=== PATIENT | female | born 1935 | race Caucasian/White ===

== ENCOUNTER 2016-11-04 01:16 | Inpatient (IN) | payer MEDICARE, MEDICAID ==
[~2016-11-04] VITALS: Ht 152.4 cm; Wt 83.1 kg
[2016-11-04] VITALS (19 sets, daily range): BP systolic 86–130; BP diastolic 61–92
[~2016-11-04 01:16] MED LIST: ACET-2422 PO; ACET325T38 PO; ASP81TEC PO; BISA10SU58 RC; CARV3.12 PO; CARV3.122 PO; CEFD300C3 PO; CETI10CA PO; CHOL100048 PO; CLOP75TA28 PO; CLOP75TA69 PO; DEXAMETHASONE PF 10 MG/ML (DECADRON) VIAL ONE; DONE10TA12 PO; DONE10TA41 PO; FAMO10TA43 PO; FIBER CHOICE PO; FURO-125 PO; FURO20TA4 PO; GLIP10TA13 PO; GLYB5TAB6; INSU100V3 SC; INSU100V5 SQ; INUL1.5T3 PO; LACT1CAP64 PO; LEVA1.2516 INH; LIDO76.5 TP; LOPE2CAP PO; MAGN400O7 PO; METF500T4; METO50TA2; NYST15CR TP; PANT40SU PO; PANT40TA3 PO; POTA10TA10 PO; POTA20TA15 PO; PRD20T PO; SIMV40TA PO; SIMV40TA4 PO; SULF1TAB38 PO; VITA1CAP PO; glyberide; lasix; metformin; metoprolol
--- NOTE | 2016-11-04 01:25 | ED Respiratory ---
General Chief Complaint: Respiratory Problems Stated Complaint: SOA Source: patient (LIMITED HISTORIAN), old records History of Present Illness Time seen by provider: 01:14 Initial Comments PT ARRIVES VIA EMS FROM [facility]IA [facility] PT HAS BEEN SHORT OF BREATH FOR APPROXIMATELY AN HOUR PT DENIES CHEST PAIN PT HAS SWELLING TO LEGS/ FEET DENIES COUGH PT'S O2 SAT WAS 89% ON 3L/NC SKILLED NURSING GAVE NEB TREATMENT AT 0025 AND EMS GAVE ANOTHER ONE PT HAS HISTORY OF CHF/PULMONARY EDEMA WAS ADMITTED 09/28-10/05 FOR SAME PT IS DNR/DNI PCP: DR. THORPE Allergies and Home Medications Allergies Coded Allergies: No Known Drug Allergies (Unverified , 09/28/16) Home Medications 10 ML PO DAILY (Reported) Acetaminophen 650 Mg Tablet.er 650 MG PO Q6H PRN PRN PAIN (Reported) Aspirin 81 Mg Tabec 81 MG PO DAILY (Reported) Bisacodyl 10 Mg Supp.rect 10 MG RC DAILY PRN PRN CONSTIPATION (Reported) Carvedilol 3.125 Mg Tablet 3.125 MG PO BID (Reported) Cetirizine HCl 10 Mg Capsule 10 MG PO DAILY (Reported) Cholecalciferol (Vitamin D3) 1,000 Unit Capsule 1,000 UNIT PO DAILY (Reported) Clopidogrel Bisulfate 75 Mg Tablet 75 MG PO DAILY (Reported) Donepezil HCl 10 Mg Tablet 10 MG PO HS (Reported) Famotidine 10 Mg Tablet 10 MG PO AC PRN PRN HEARTBURN (Reported) Furosemide 20 Mg Tablet 60 MG PO BID (Reported) TAKES 3 (20 MG) TABLETS Insulin Determir 1,000 Units/10 Ml Soln #3 15 UNIT SQ HS Prescribed by: ELKIN THORPE on 10/05/16 0832 Insulin Regular, Human 1,000 Units/10 Ml Soln #1 0 UNIT SC ACHS U = UNITS FOR: FSBS 151-200 GIVE 4 U, 201-250 GIVE 6 U, 251-300 GIVE 8 U, 301 -350 GIVE 10 U, 351-400 GIVE 12 U, >400 CALL DOCTOR Prescribed by: ELKIN THORPE on 10/05/16 0832 Lactobacillus Combo No.11 1 Each Cap.sprink 10Days 1 EACH PO DAILY (Reported) STARTED 09/24/16 FOR A 10 DAY THERAPY Levalbuterol HCl 1.25 Mg/3 Ml Vial.neb #90 1.25 MG INH RTQ2H PRN PRN SHORTNESS OF BREATH Prescribed by: ELKIN THORPE on 10/05/1632 Levalbuterol HCl 1.25 Mg/3 Ml Vial.neb #60 1.25 MG INH BID Prescribed by: ELKIN THORPE on 10/05/1632 Lidocaine HCl 76.5 Gm Cream..g. TP QID PRN PRN PAIN (Reported) Loperamide HCl 2 Mg Capsule 2 MG PO Q4H PRN PRN DIARRHEA (Reported) Magnesium Hydroxide 400 Mg/5 Ml Oral.susp 30 ML PO DAILY PRN PRN CONSTIPATION ( Reported) Nystatin 15 Gm Cream..g. TP BID (Reported) Pantoprazole Sodium 40 Mg Tablet.dr 40 MG PO DAILY (Reported) Potassium Chloride 10 Meq Tablet.er 20 MEQ PO BID (Reported) TAKES 2 (20 MEQ) TABLETS Simvastatin 40 Mg Tablet 40 MG PO HS (Reported) Vitamin B Complex 1 Each Capsule 1 CAP PO DAILY (Reported) Constitutional: no symptoms reported other (VERY LIMITED) Respiratory: see HPI short of breath Cardiovascular: No chest pain, edema Past Tmvjbih-Mftmlr-Sqhvok Hx Patient Social History Recent Hopitalizations: No Seasonal Allergies Seasonal Allergies: No Surgeries HX Surgeries: Yes Surgeries: Appendectomy, Cardiac, CABG, Gallbladder, Hysterectomy, Orthopedic Respiratory Hx Respiratory Disorders: Yes (PULMONARY EDEMA; CHRONIC RESPIRATORY FAILURE AND HYPOXIA-O2 DEPENDENT) Respiratory Disorders: Pneumonia Cardiovascular Hx Cardiac Disorders: Yes (congestive heart failure; PULMONARY EDEMA) Cardiac Disorders: Coronary Artery Disease, Heart Attack, Hypertension Neurological Hx Neurological Disorders: Yes (LEFT SIDE WEAKNESS) Neurological Disorders: Dementia, Stroke, TIA Reproductive System 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 Genitourinary Hx Genitourinary Disorders: Yes Genitourinary Disorders: Renal Failure, UTI-Chronic Gastrointestinal Gastrointestinal Disorders: Abdominal Hernia, Gastroesophageal Reflux, Obstructive Bowel, Chronic Diarrhea Musculoskeletal Hx Musculoskeletal Disorders: Yes (muscle weakness, hemiplegia l side; GAIT DISTURBANCE; FALLS) Endocrine Hx Endocrine Disorders: Yes Endocrine Disorders: Diabetes, Insulin dep, Hypothyroidsim HEENT HX ENT Disorders: Yes HEENT Disorders: Cataract Cancer Hx Cancer: No Psychosocial Hx Psychiatric Problems: No Integumentary HX Skin/Integumentary Disorder: No Blood Transfusions Hx Blood Disorders: No Family Medical History Family Medial History: Completed stroke 19 MOTHER G8 BROTHER Hypertension 19 FATHER 19 MOTHER G8 BROTHER G8 SISTER Myocardial infarction 19 FATHER Physical Exam Vital Signs Vital Sign - Last 12Hours 11/04/16 01:20 Temp 95.0 Pulse 102 Resp 20 B/P 145/82 Pulse Ox 92 O2 Delivery Nasal Cannula O2 Flow Rate 3 Capillary Refill : General Appearance: moderate distress (WITH AUDIBLE WHEEZING FROM THE DESK) Respiratory: respiratory distress accessory muscle use wheezing (AUDIBLE WHEEZING FROM DESK) Cardiovascular: no JVD irregularly irregular Gastrointestinal: non tender soft Extremities: pedal edema (2+ EDEMA BILATERALLY) Neurologic/Psychiatric: no motor/sensory deficits alert Skin: normal color other (COOL, DRY) Progress/Results/Core Measures Results/Orders Lab Results Laboratory Tests Test 11/04/16 01:24 Range/Units Activated Partial Thromboplast Time 31 24-35 SEC Alanine Aminotransferase (ALT/SGPT) 15 0-55 U/L Albumin 3.5 3.2-4.5 G/DL Alkaline Phosphatase 87 40-136 U/L Anion Gap 15 H 5-14 MMOL/L Aspartate Amino Transf (AST/SGOT) 27 5-34 U/L B-Type Natriuretic Peptide 1318.2 H <100.0 PG/ML BUN/Creatinine Ratio 30 Basophils # (Auto) 0.0 0.0-0.1 10^3/uL Basophils (%) (Auto) 0 0-10 % Blood Urea Nitrogen 62 H 7-18 MG/DL Calcium Level 9.2 8.5-10.1 MG/DL Carbon Dioxide Level 30 21-32 MMOL/L Chloride Level 95 L 98-107 MMOL/L Creatine Kinase MB 2.1 <6.6 NG/ML Creatinine 2.08 H 0.60-1.30 MG/DL Eosinophils # (Auto) 0.2 0.0-0.3 10^3/uL Eosinophils (%) (Auto) 2 0-10 % Estimat Glomerular Filtration Rate 23 Glucose Level 72 70-105 MG/DL Hematocrit 33 L 35-52 % Hemoglobin 10.4 L 11.5-16.0 G/DL INR Comment 1.1 0.8-1.4 Lymphocytes # (Auto) 2.1 1.0-4.0 X 10^3 Lymphocytes (%) (Auto) 20 12-44 % Magnesium Level 2.4 1.8-2.4 MG/DL Mean Corpuscular Hemoglobin 30 25-34 PG Mean Corpuscular Hemoglobin Concent 32 32-36 G/DL Mean Corpuscular Volume 92 80-99 FL Mean Platelet Volume 10.4 7.4-10.4 FL Monocytes # (Auto) 0.7 0.0-1.0 X 10^3 Monocytes (%) (Auto) 6 0-12 % Neutrophils # (Auto) 7.4 1.8-7.8 X 10^3 Neutrophils (%) (Auto) 71 42-75 % Platelet Count 248 130-400 10^3/uL Potassium Level 4.1 3.6-5.0 MMOL/L Prothrombin Time 14.2 12.2-14.7 SEC Red Blood Count 3.52 L 4.35-5.85 10^6/uL Red Cell Distribution Width 15.1 H 10.0-14.5 % Sodium Level 140 135-145 MMOL/L Total Bilirubin 1.3 H 0.1-1.0 MG/DL Total Creatine Kinase 26 L 29-168 U/L Total Protein 6.8 6.4-8.2 G/DL Troponin I < 0.30 <0.30 NG/ML White Blood Count 10.4 4.3-11.0 10^3/uL Micro Results Microbiology 11/04/16 Influenza Types A,B Antigen (EMILIA) - Final, Complete My Orders Orders-JUHI VILLALOBOS DO Saline Lock/Iv-Start (11/04/16:18) Ekg Tracing (11/04/16:18) O2 (11/04/16:18) Monitor-Rhythm Ecg Trace Only (11/04/16:18) BNP (11/04/16:18) Cbc With Automated Diff (11/04/16:18) Comprehensive Metabolic Panel (11/04/16:18) Creatine Kinase (11/04/16:18) Creatine Kinase Mb (11/04/16:18) Magnesium (11/04/16:18) Protime With Inr (11/04/16:18) Partial Thromboplastin Time (11/04/16:18) Troponin I (11/04/16:18) Influenza A And B Antigens (11/04/16 01:18) Chest 1 View, Ap/Pa Only (11/04/16 01:18) Albuterol/Ipra Inhalation Soln (Duoneb I (11/04/16 01:30) Dexamethasone Injection (Decadron Inject (11/04/16 01:30) Rt Request For Service (11/04/16 01:18) Svn Sm Volume Nebulizer Rt-Rfs (11/04/16 01:18) Methylprednisolone Sod Succ (Solu-Medrol (11/04/16 01:30) Dexamethasone Pf Injection (Decadron Pf (11/04/16 01:16) Furosemide Injection (Lasix Injection) (11/04/16 01:30) Catheter(Urinary) Insert & Ass 03,15 (11/04/16 01:26) Medications Given in ED Current Medications Medications Dose Ordered Sig/[place] Route Start Time Stop Time Status Last Admin Dose Admin Albuterol/ Ipratropium 3 ml ONCE ONCE INH 11/04/16 01:30 11/04/16 01:31 DC 11/04/16 01:58 3 ML Dexamethasone Sodium Phosphate 20 mg ONCE ONCE IH 11/04/16 01:30 11/04/16 01:31 DC 11/04/16 01:59 20 MG Furosemide 80 mg ONCE ONCE IVP 11/04/16 01:30 11/04/16 01:31 DC 11/04/16 01:44 80 MG Methylprednisolone Sodium Succinate 125 mg ONCE ONCE IVP 11/04/16 01:30 11/04/16 01:31 DC 11/04/16 01:43 125 MG Vital Signs/I&O Vital Sign - Last 12Hours 11/04/16 01:20 Temp 95.0 Pulse 102 Resp 20 B/P 145/82 Pulse Ox 92 O2 Delivery Nasal Cannula O2 Flow Rate 3 Progress Note : Progress Note O2 SATS REMAINED IN 80'S AND PT BEGAN TO APPEAR FATIGUED, PLACED ON BIPAP PT IS DNR/DNI--O2 SATS 100% AND PT RESTING EASIER AND RESPIRATIONS MUCH LESS LABORED AND NO LONGER HAS AUDIBLE WHEEZING. 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 HAMMER, COVERING FOR DR. THORPE, ACCEPTS PT FOR ADMIT. Impression Impression: Primary Impression: Acute exacerbation of CHF (congestive heart failure) Additional Impressions: Acute on chronic renal failure Respiratory failure Hypothermia Disposition: 09 ADMITTED INPATIENT Condition: Improved Decision to Admit Reason: Admit from ER (General) Decision to Admit/Date: Nov 04, 2016 Time/Decision to Admit Time: 01:40 Departure-Patient Inst. Referrals: ELKIN THORPE MD (PCP/Family) Primary Care Physician JUHI VILLALOBOS DO Nov 04, 2016 01:25 Resp 20 26 B/P 145/82 Pulse Ox 92 95 100 O2 Delivery Nasal Cannula Nasal Cannula O2 Flow Rate 3 3 50 Progress Note : Progress Note O2 SATS REMAINED IN 80'S AND PT BEGAN TO APPEAR FATIGUED, PLACED ON BIPAP PT IS DNR/DNI--O2 SATS 100% AND PT RESTING EASIER AND RESPIRATIONS MUCH LESS LABORED AND NO LONGER HAS AUDIBLE WHEEZING. 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 HAMMER, COVERING FOR DR. THORPE, ACCEPTS PT FOR ADMIT. Impression Impression: Primary Impression: Acute exacerbation of CHF (congestive heart failure) Additional Impressions: Acute on chronic renal failure Respiratory failure Hypothermia Disposition: 09 ADMITTED INPATIENT Condition: Improved Decision to Admit Reason: Admit from ER (General) Decision to Admit/Date: Nov 04, 2016 Time/Decision to Admit Time: 01:40 Departure-Patient Inst. Referrals: ELKIN THORPE MD (PCP/Family) Primary Care Physician JUHI VILLALOBOS DO Nov 04, 2016 01:25
[2016-11-04] MEDS ORDERED: DEXAMETHASONE 4 MG/ML SDV (DECADRON) IH ONE (01:30)
[2016-11-04] MEDS ORDERED: RT-ALBUTEROL/IPRATROPIUM 3 ML (DUONEB) VIAL INH ONE (01:30)
[2016-11-04] MEDS ORDERED: methylPREDNISolone 125 MG (Solu-MEDROL) VIAL IVP ONE (01:30)
[2016-11-04] MEDS ORDERED: FUROSEMIDE 40 MG/4 ML INJ (LASIX) IVP ONE (01:30)
[2016-11-04 01:32] LABS: BASOPHILS % (AUTO) 0 % (0-10); EOSINOPHILS # (AUTO) 0.2 10^3/uL (0.0-0.3); EOSINOPHILS % (AUTO) 2 % (0-10); LYMPHOCYTES # (AUTO) 2.1 X 10^3 (1.0-4.0); LYMPHOCYTES % (AUTO) 20 % (12-44); MEAN CORPUSCULAR HEMOGLOBIN 30 PG (25-34); MEAN CORPUSCULAR HGB CONC 32 G/DL (32-36); MEAN CORPUSCULAR VOLUME 92 FL (80-99); MEAN PLATELET VOLUME 10.4 FL (7.4-10.4); MONOCYTES # (AUTO) 0.7 X 10^3 (0.0-1.0); MONOCYTES % (AUTO) 6 % (0-12); NEUTROPHILS # (AUTO) 7.4 X 10^3 (1.8-7.8); NEUTROPHILS % (AUTO) 71 % (42-75); PLATELET COUNT 248 10^3/uL (130-400); RED BLOOD COUNT 3.52 10^6/uL (4.35-5.85); RED CELL DISTRIBUTION WIDTH 15.1 % (10.0-14.5); WHITE BLOOD COUNT 10.4 10^3/uL (4.3-11.0)
[2016-11-04 01:40] LABS: INR 1.1 (0.8-1.4); PROTHROMBIN TIME PATIENT 14.2 SEC (12.2-14.7)
[2016-11-04 01:51] LABS: ALANINE AMINOTRANSFERASE 15 U/L (0-55); ALBUMIN 3.5 G/DL (3.2-4.5); ANION GAP 15 MMOL/L (5-14); ASPARTATE AMINO TRANSFERASE 27 U/L (5-34); BILIRUBIN,TOTAL 1.3 MG/DL (0.1-1.0); BLOOD UREA NITROGEN 62 MG/DL (7-18); BUN/CREATININE RATIO 30; CALCIUM 9.2 MG/DL (8.5-10.1); CARBON DIOXIDE 30 MMOL/L (21-32); CHLORIDE 95 MMOL/L (98-107); CREATINE KINASE 26 U/L (29-168); CREATININE SERUM 2.08 MG/DL (0.60-1.30); GFR ESTIMATED 23; GLUCOSE 72 MG/DL (70-105); MAGNESIUM 2.4 MG/DL (1.8-2.4); POTASSIUM 4.1 MMOL/L (3.6-5.0); SODIUM 140 MMOL/L (135-145); TOTAL PROTEIN 6.8 G/DL (6.4-8.2)
[2016-11-04 02:01] LABS: TROPONIN I < 0.30 NG/ML (<0.30)
[2016-11-04 02:04] LABS: ABG HCO3 37 MMOL/L (23-27); ABG OXYGEN SATURATION 87 % (94-100); ABG PO2 57 MMHG (79-93); ABG TCO2 40.1 MMOL/L (21.0-31.0)
[2016-11-04 02:07] LABS: ABG PCO2 80 MMHG (35-45); ABG PH 7.28 (7.37-7.43); ALLENS TEST YES-POS
[2016-11-04] MEDS ORDERED: RT-ALBUTEROL/IPRATROPIUM 3 ML (DUONEB) VIAL INH PRN (03:45)
[2016-11-04 05:39] LABS: ABG BASE EXCESS 9.5 MMOL/L (-2.5-2.5); ABG HCO3 36 MMOL/L (23-27); ABG OXYGEN SATURATION 100 % (94-100); ABG PCO2 57 MMHG (35-45); ABG PH 7.41 (7.37-7.43); ABG PO2 183 MMHG (79-93); ABG TCO2 37.9 MMOL/L (21.0-31.0)
[2016-11-04 05:46] LABS: ALLENS TEST YES-POS; PATIENT TEMP 95.5
--- NOTE | 2016-11-04 06:18 | Diagnostic Imaging Report ---
INDICATION: Wheezing. Shortness of air. COMPARISON: 10/20/2016 FINDINGS: Single frontal radiographic view of the chest was obtained and continues to demonstrate moderate cardiomegaly. There has been interval progression of moderate pulmonary vascular congestion. There has also been interval development of diffuse interstitial opacities as well as some scattered alveolar opacities predominantly in a perihilar and bibasilar distribution. Mild to moderate bibasilar effusions also exist. There is no pneumothorax. Sternotomy wires are noted. Bony structures show no gross acute abnormalities. IMPRESSION: 1. Cardiomegaly with sequela of CHF including mixed interstitial and alveolar pulmonary edema and bilateral effusions. Dictated by: Dictated on workstation # [id number]
[2016-11-04] MEDS: RT-ALBUTEROL/IPRATROPIUM 3 ML (DUONEB) VIAL INH SCH ×5 (06:30→23:19)
[2016-11-04] MEDS: FUROSEMIDE 40 MG/4 ML INJ (LASIX) IV SCH ×3 (06:59→16:53)
[2016-11-04] MEDS ORDERED: DEXTROSE 50% 50 ML (IMS) SYR ONE (07:08)
[2016-11-04] MEDS ORDERED: CATHETER FLUSH 10 ML SYR IV PRN (07:15)
[2016-11-04] MEDS ORDERED: FLU TRIvalent (5 YOA+) 2016-17 (AFLURIA) 0.5 ML IM ONE (07:15)
[2016-11-04 07:25] LABS: BASOPHILS % (AUTO) 0 % (0-10); EOSINOPHILS % (AUTO) 0 % (0-10); LYMPHOCYTES # (AUTO) 0.5 X 10^3 (1.0-4.0); LYMPHOCYTES % (AUTO) 7 % (12-44); MEAN CORPUSCULAR HEMOGLOBIN 30 PG (25-34); MEAN CORPUSCULAR HGB CONC 32 G/DL (32-36); MEAN CORPUSCULAR VOLUME 93 FL (80-99); MEAN PLATELET VOLUME 10.4 FL (7.4-10.4); MONOCYTES # (AUTO) 0.2 X 10^3 (0.0-1.0); MONOCYTES % (AUTO) 2 % (0-12); NEUTROPHILS # (AUTO) 6.2 X 10^3 (1.8-7.8); NEUTROPHILS % (AUTO) 91 % (42-75); PLATELET COUNT 187 10^3/uL (130-400); RED BLOOD COUNT 3.48 10^6/uL (4.35-5.85); RED CELL DISTRIBUTION WIDTH 15.2 % (10.0-14.5); WHITE BLOOD COUNT 6.8 10^3/uL (4.3-11.0)
--- NOTE | 2016-11-04 07:44 | History & Physicial ---
History of Present Illness History of Present Illness Reason for visit/HPI patient has problem with pulmonary edema area Patient admitted via [facility]. Patient has problem with kidney. Patient had trouble breathing. Nasal oxygen in the 80s low 80s. Patient sent out to the emergency room. Patient put on BiPAP. Surgeries CABG, gallbladder, hysterectomy, bilateral cataracts, and right arthroscopy. Patient on BiPAP and resting comfortably Date of Admission Nov 04, 2016 at 01:40 I consulted on this patient on 11/04/16 07:40 Attending Physician Elkin Damon MD Admitting Physician Elkin Damon MD Consult Allergies and Home Medications Allergies Coded Allergies: No Known Drug Allergies (Unverified , 09/28/16) Home Medications 10 ML PO DAILY (Reported) Acetaminophen 650 Mg Tablet.er 650 MG PO Q6H PRN PRN PAIN (Reported) Aspirin 81 Mg Tabec 81 MG PO DAILY (Reported) Bisacodyl 10 Mg Supp.rect 10 MG RC DAILY PRN PRN CONSTIPATION (Reported) Carvedilol 3.125 Mg Tablet 3.125 MG PO BID (Reported) Cetirizine HCl 10 Mg Capsule 10 MG PO DAILY (Reported) Cholecalciferol (Vitamin D3) 1,000 Unit Capsule 1,000 UNIT PO DAILY (Reported) Clopidogrel Bisulfate 75 Mg Tablet 75 MG PO DAILY (Reported) Donepezil HCl 10 Mg Tablet 10 MG PO HS (Reported) Famotidine 10 Mg Tablet 10 MG PO AC PRN PRN HEARTBURN (Reported) Furosemide 20 Mg Tablet 60 MG PO BID (Reported) TAKES 3 (20 MG) TABLETS Insulin Determir 1,000 Units/10 Ml Soln #3 15 UNIT SQ HS Prescribed by: ELKIN DAMON on 10/05/16 0832 Insulin Regular, Human 1,000 Units/10 Ml Soln #1 0 UNIT SC ACHS U = UNITS FOR: FSBS 151-200 GIVE 4 U, 201-250 GIVE 6 U, 251-300 GIVE 8 U, 301 -350 GIVE 10 U, 351-400 GIVE 12 U, >400 CALL DOCTOR Prescribed by: ELKIN DAMON on 10/05/16 0832 Lactobacillus Combo No.11 1 Each Cap.sprink 10Days 1 EACH PO DAILY (Reported) STARTED 09/24/16 FOR A 10 DAY THERAPY Levalbuterol HCl 1.25 Mg/3 Ml Vial.neb #90 1.25 MG INH RTQ2H PRN PRN SHORTNESS OF BREATH Prescribed by: ELKIN DAMON on 10/05/16 0832 Levalbuterol HCl 1.25 Mg/3 Ml Vial.neb #60 1.25 MG INH BID Prescribed by: ELKIN DAMON on 10/05/16 0832 Lidocaine HCl 76.5 Gm Cream..g. TP QID PRN PRN PAIN (Reported) Loperamide HCl 2 Mg Capsule 2 MG PO Q4H PRN PRN DIARRHEA (Reported) Magnesium Hydroxide 400 Mg/5 Ml Oral.susp 30 ML PO DAILY PRN PRN CONSTIPATION ( Reported) Nystatin 15 Gm Cream..g. TP BID (Reported) Pantoprazole Sodium 40 Mg Tablet.dr 40 MG PO DAILY (Reported) Potassium Chloride 10 Meq Tablet.er 20 MEQ PO BID (Reported) TAKES 2 (20 MEQ) TABLETS Simvastatin 40 Mg Tablet 40 MG PO HS (Reported) Vitamin B Complex 1 Each Capsule 1 CAP PO DAILY (Reported) Past Xuznuyx-Dgkknr-Dfnvsg Hx Patient Social History Marrital Status: Alcohol Use: Denies Use Recreational Drug Use: No Smoking Status: Never a Smoker Physical Abuse Screen: No Sexual Abuse: No Recent Foreign Travel: No Contact w/other who traveled: No Recent Hopitalizations: No Recent Infectious Disease Expo: No Seasonal Allergies Seasonal Allergies: No Surgeries HX Surgeries: Yes Surgeries: Appendectomy, Cardiac, CABG, Gallbladder, Hysterectomy, Orthopedic Respiratory Hx Respiratory Disorders: Yes (PULMONARY EDEMA; CHRONIC RESPIRATORY FAILURE AND HYPOXIA-O2 DEPENDENT) Cardiovascular Hx Cardiovascular Disorders: Yes (congestive heart failure; PULMONARY EDEMA) Cardiac Disorders: Coronary Artery Disease, Heart Attack, Hypertension Neurological Hx Neurological Disorders: Yes (LEFT SIDE WEAKNESS) Neurological Disorders: Dementia, Stroke, TIA Reproductive System : No Hx Reproductive Disorders: No Genitourinary Hx Genitourinary Disorders: Yes Genitourinary Disorders: Renal Failure, UTI-Chronic Gastrointestinal Gastrointestinal Disorders: Abdominal Hernia, Gastroesophageal Reflux, Obstructive Bowel, Chronic Diarrhea Musculoskeletal Hx Musculoskeletal Disorders: Yes (muscle weakness, hemiplegia l side; GAIT DISTURBANCE; FALLS) Endocrine Hx Endocrine Disorders: Yes Endocrine Disorders: Diabetes, Insulin dep, Hypothyroidsim HEENT HX ENT Disorders: Yes HEENT Disorders: Cataract Cancer Hx Cancer: No Psychosocial Hx Psychiatric Problems: No Integumentary HX Skin/Integumentary Disorder: No Blood Transfusions Hx Blood Disorders: No Family Medical History Family Hx: Completed stroke 19 MOTHER G8 BROTHER Hypertension 19 FATHER 19 MOTHER G8 BROTHER G8 SISTER Myocardial infarction 19 FATHER Constitutional: malaise weakness EENTM: no symptoms reported Respiratory: dyspnea on exertion short of breath Gastrointestinal: no symptoms reported Genitourinary: no symptoms reported Physical Exam Vital Signs Vital Sign - Last 12Hours 11/04/16 01:20 Temp 95.0 Pulse 102 Resp 20 B/P 145/82 Pulse Ox 92 O2 Delivery Nasal Cannula O2 Flow Rate 3 Capillary Refill : Greater Than 3 Seconds General Appearance: No Apparent Distress HEENT: Normal ENT Inspection Neck: Normal Inspection Respiratory: Normal Breath Sounds No Respiratory Distress Cardiovascular: Regular Rate, Rhythm Gastrointestinal: Non Tender Soft Assessment/Plan Assessment and Plan acute on chronic respiratory failure congestive heart failure. Renal insufficiency. Diabetes OLI HAMMER DO Nov 04, 2016 07:43
[2016-11-04 07:50] LABS: ANISOCYTOSIS MODERATE; BAND NEUTROPHILS 1 %; BASOPHILS % (MANUAL) 0 %; EOSINOPHILS % (MANUAL) 0 %; LYMPHOCYTES % (MANUAL) 9 %; NEUTROPHILS % (MANUAL) 90 %
[2016-11-04 08:07] LABS: ALBUMIN 3.5 G/DL (3.2-4.5); BILIRUBIN,TOTAL 1.5 MG/DL (0.1-1.0); CALCIUM 9.3 MG/DL (8.5-10.1); CREATININE SERUM 2.07 MG/DL (0.60-1.30); MAGNESIUM 2.2 MG/DL (1.8-2.4); PHOSPHORUS 4.4 MG/DL (2.3-4.7); POTASSIUM 3.7 MMOL/L (3.6-5.0); TOTAL PROTEIN 6.7 G/DL (6.4-8.2)
[2016-11-04] MEDS: inSUlin (REGULAR) HUMAN 1 UNIT/0.01 ML (CHARGE PER UNIT) SC SCH ×4 (08:21→21:02)
[2016-11-04] MEDS ORDERED: MAGN400T29 PO (08:41)
[2016-11-04] MEDS ORDERED: SPIR25TA3 PO (08:41)
[2016-11-04] MEDS ORDERED: APIX2.5T PO (08:41)
[2016-11-04] MEDS ORDERED: METO2.5T PO (08:41)
[2016-11-04] MEDS ORDERED: LEVA1.2524 NEB (08:41)
[2016-11-04] MEDS ORDERED: DILT240C PO (08:41)
[2016-11-04] MEDS ORDERED: POTA20LI PO (08:41)
[2016-11-04] MEDS ORDERED: FURO80TA3 PO (08:41)
[2016-11-04] MEDS ORDERED: FURO40TA4 PO (08:41)
[2016-11-04] MEDS: methylPREDNISolone 125 MG (Solu-MEDROL) VIAL IV SCH ×2 (08:50→16:45)
--- NOTE | 2016-11-04 09:05 | Consultation-Cardiology ---
HPI-Cardiology Cardiology Consultation: Date of Consultation 11/04/16 Date of Admission Attending Physician Elkin Damon MD Admitting Physician Elkin Damon MD Consulting Physician Allison NAVARRO MD HPI: Chief Complaint: shortness of breath this is a 81-year-old lady who presented with severe shortness of breath. She complained of weight gain. She denies any chest pain. She had orthopnea and PND. Therefore was brought to the ER. She has improved with IV Lasix. She has known history of significant cardiomyopathy with EF below 20 percent. Review of Systems-Cardiology Review of Systems Constitutional: No As described under HPI, No no symptoms reported, No chills, No fever, No lightheadedness, No malaise, No tiredness, No weight loss, No weight gain, No other Eyes: No As described under HPI, No no symptoms reported, No blindness, No blurred vision, No contact lenses, No drainage, No decreased acuity, No foreign body sensation, No glasses, No inflammation, No pain, No photophobia, No previous injury, No shadows, No tunnel vision, No other, No vision change Ears/Nose/Throat: No As described under HPI, No no symptoms reported, No chronic hearing loss, No epistaxis, No ear discharge, No ear pain, No loose teeth, No mouth pain, No mouth swelling, No nasal drainage, No nose pain, No recent hearing loss, No throat pain, No throat swelling, No ulcerations, No other Respiratory: orthopnea shortness of breath Cardiovascular: No no symptoms reported, No As described under HPI, No chest pain, No edema, No irregular heart rate, No lightheadedness, No palpitations, No syncope, No other Gastrointestinal: No no symptoms reported, No As described under HPI, No abdomen distended, No abdominal pain, No blood streaked bowels, No constipation , No diarrhea, No difficulty swallowing, No nausea, No poor appetite, No poor fluid intake, No rectal bleeding, No vomiting, No other, No nausea/vomiting/ diarrhea, No stool coloration changes Genitourinary: No no symptoms reported, No As described under HPI, No burning, No dysuria, No discharge, No frequency, No flank pain, No hematuria, No incontinence, No pain, No urgency, No other, No urine frequency changes, No urine coloration changes Musculoskeletal: No no symptoms reported, No As describe under HPI, No back pain, No gout, No joint pain, No joint swelling, No muscle pain, No muscle stiffness, No neck pain, No other Skin: No no symptoms reported, No As described under HPI, No change in color, No change in hair/nails, No dryness, No lesions, No lumps, No rash, No other, No skin related problems, No ulcerations, No rash on exposed areas, No ulcerations on exposed areas Psychiatric/Neurological: No As described under HPI, No anxiety, No depression , No emotional problems, No focal weakness, No headache, No no symptoms reported , No numbness, No other, No pre-existing deficit, No seizure, No syncope, No tingling, No tremors, No weakness QXI-Eatvcv-Nyrnrx Hx Patient Social History Marrital Status: Alcohol Use: Denies Use Recreational Drug Use: No Smoking Status: Never a Smoker Recent Foreign Travel: No Recent Infectious Disease Expo: No Physical Abuse Screen: No Sexual Abuse: No Past Medical History PMH As described under Assessment. Family Medical History Family History: Completed stroke 19 MOTHER G8 BROTHER Hypertension 19 FATHER 19 MOTHER G8 BROTHER G8 SISTER Myocardial infarction 19 FATHER Allergies and Home Medications Allergies Coded Allergies: No Known Drug Allergies (Unverified , 09/28/16) Home Medications 10 ML PO DAILY (Reported) Acetaminophen 650 Mg Tablet.er 650 MG PO Q6H PRN PRN PAIN (Reported) Apixaban 2.5 Mg Tablet 2.5 MG PO DAILY (Reported) Aspirin 81 Mg Tabec 81 MG PO DAILY (Reported) Bisacodyl 10 Mg Supp.rect 10 MG RC DAILY PRN PRN CONSTIPATION (Reported) Carvedilol 3.125 Mg Tablet 3.125 MG PO BID (Reported) Cetirizine HCl 10 Mg Capsule 10 MG PO DAILY (Reported) Cholecalciferol (Vitamin D3) 1,000 Unit Capsule 1,000 UNIT PO DAILY (Reported) Clopidogrel Bisulfate 75 Mg Tablet 75 MG PO DAILY (Reported) Diltiazem HCl 240 Mg Cap.er.24h 240 MG PO DAILY (Reported) Donepezil HCl 10 Mg Tablet 10 MG PO HS (Reported) Famotidine 10 Mg Tablet 10 MG PO AC PRN PRN HEARTBURN (Reported) Furosemide 80 Mg Tablet 80 MG PO DAILY (Reported) Furosemide 40 Mg Tablet 40 MG PO 1400 (Reported) Glipizide 10 Mg Tablet 10 MG PO DAILY (Reported) Insulin Determir 1,000 Units/10 Ml Soln #3 15 UNIT SQ HS Prescribed by: ELKIN DAMON on 10/05/16831 Insulin Regular, Human 1,000 Units/10 Ml Soln #1 0 UNIT SC ACHS U = UNITS FOR: FSBS 151-200 GIVE 4 U, 201-250 GIVE 6 U, 251-300 GIVE 8 U, 301 -350 GIVE 10 U, 351-400 GIVE 12 U, >400 CALL DOCTOR Prescribed by: ELKIN DAMON on 10/05/16 0832 Levalbuterol HCl 1.25 Mg/0.5 Ml Vial.neb 1.25 MG NEB TID (Reported) Levalbuterol HCl 1.25 Mg/0.5 Ml Vial.neb 1.25 MG IH DAILY PRN PRN SHORTNESS OF BREATH (Reported) Lidocaine HCl 76.5 Gm Cream..g. TP QID PRN PRN PAIN (Reported) Loperamide HCl 2 Mg Capsule 2 MG PO Q4H PRN PRN DIARRHEA (Reported) MAX OF 4 CAPSULES DAILY Magnesium Hydroxide 400 Mg/5 Ml Oral.susp 30 ML PO DAILY PRN PRN CONSTIPATION ( Reported) Magnesium Oxide 400 Mg Tablet 400 MG PO BID (Reported) Metolazone 2.5 Mg Tablet 2.5 MG PO DAILY (Reported) Nystatin 15 Gm Cream..g. TP BID (Reported) Pantoprazole Sodium 40 Mg Tablet.dr 40 MG PO DAILY (Reported) Potassium Chloride 20 Meq/15 Ml Liquid 15 ML PO BID (Reported) Simvastatin 40 Mg Tablet 40 MG PO HS (Reported) Spironolactone 25 Mg Tablet 25 MG PO DAILY (Reported) Vitamin B Complex 1 Each Capsule 1 CAP PO DAILY (Reported) Physical Exam-Cardiology Physical Exam Vital Signs/I&O Vital Sign - Last 12Hours 11/04/16 11/04/16 11/04/16 11/04/16 09:00 10:00 11:00 11:07 Pulse 102 108 105 Resp 22 14 20 B/P 116/91 120/66 130/84 Pulse Ox 99 89 94 97 O2 Delivery Nasal Cannula Nasal Cannula Nasal Cannula Nasal Cannula O2 Flow Rate 3.00 3.00 3.00 2.00 11/04/16 11/04/16 11/04/16 11/04/16 12:00 12:00 12:00 13:00 Temp 96.7 Pulse 100 114 Resp 17 B/P 127/92 Pulse Ox 99 97 O2 Delivery Nasal Cannula Nasal Cannula O2 Flow Rate 3.00 2.00 11/04/16 11/04/16 11/04/16 11/04/16 13:00 14:00 15:00 15:28 Pulse 112 112 114 Resp 20 18 14 B/P 112/66 101/73 90/77 Pulse Ox 100 94 O2 Delivery Nasal Cannula Nasal Cannula Nasal Cannula Nasal Cannula O2 Flow Rate 3.00 3.00 3.00 2.00 11/04/16 11/04/16 11/04/16 11/04/16 16:00 16:00 16:05 17:00 Temp 96.6 Pulse 128 125 Resp 19 18 B/P 108/85 86/65 Pulse Ox 97 100 90 O2 Delivery Nasal Cannula Nasal Cannula Nasal Cannula O2 Flow Rate 2.00 3.00 3.00 11/04/16 11/04/16 18:00 18:23 Pulse 125 Resp 18 B/P 96/61 Pulse Ox 100 98 O2 Delivery Nasal Cannula Nasal Cannula O2 Flow Rate 3.00 2.00 Capillary Refill : Greater Than 3 Seconds Constitutional: No appears stated age, No AAO x 3, No apparent distress, No PERRL, No well-developed, No well-nourished, No other HEENT: No PERRL, No normal ENT inspection, No TMs normal, No pharynx normal, No scleral icterus (R), No scleral icterus (L), No pale conjunctivae (R), No pale conjunctivae (L), No photophobia, No TM abnormal (R), No TM abnormal (L), No pharyngeal erythema, No tonsillar exudate, No other, No discharge, No EOMI, No hearing is well preserved, No hard of hearing, No oral hygience is good, No ulceration, No xanthelasmas are seen Neck: No non-tender, No full range of motion, No supple, No normal inspection, No carotid bruit, No limited range of motion, No lymphadenopathy (R), No lymphadenopathy (L), No tender lateral, No tender midline, No thyromegaly, No other, No carotid pulses are 2 + bilaterally, No with good upstrokes Respiratory: rhonchi Cardiovascular: No regular rate-rhythm, No irregularly irregular, No extra beats, No parasternal heave is noted, No JVD, No edema, No bradycardia, No tachycardia, No point of maximal impulse, No cardiac thrills are palpable, No S1 and S2, No gallop/S3, No gallop/S4, No diastolic murmur, No systolic murmur, No friction rub, No click, No other Gastrointestinal: No tender, No soft, No round, No distended, No pulsatile mass , No organomegaly, No guarding, No rebound, No tenderness, No hernia, No mass, No audible bowel sounds, No abnormal bowel sounds, No abdominal bruits, No spleenomegaly, No other Rectal: deferred Extremities: No normal range of motion, No non-tender, No normal inspection, No pedal edema, No calf tenderness, No normal capillary refill, No pelvis stable , No calf tenderness, No inflammation, No pedal edema, No slow capillary refill , No swelling, No other, No abrasion, No clubbing, No cyanosis, No ecchymosis, No laceration, No no lower extremity edema bilateral, No significant edema, No tenderness, No wound Neurologic/Psychiatric: No egg grader II-XII nml as tested, No no motor/sensory deficits, No alert, No normal mood/affect, No oriented x 3, No abnormal cerebellar tests, No abnormal egg grader II-XII, No abnormal gait, No aphasia, No EOM palsy, No facial droop, No motor weakness, No sensory deficit, No depressed affect, No disoriented x 3, No other, No grossly intact, No power is 5/5 both on sides Skin: No normal color, No warm/dry, No cyanosis, No cool, No diaphoresis, No damp, No ecchymosis, No jaundice, No mottled, No pallor, No rash, No tattoos/ piercings, No ulcerations, No rash on exposed areas, No ulcerations on exposed areas, No other Data Review Labs Laboratory Tests 11/04/16 01:24: Activated Partial Thromboplast Time 31, Alanine Aminotransferase (ALT/SGPT) 15, Albumin 3.5, Alkaline Phosphatase 87, Anion Gap 15H, Aspartate Amino Transf (AST /SGOT) 27, B-Type Natriuretic Peptide 1318.2H, BUN/Creatinine Ratio 30, Basophils # (Auto) 0.0, Basophils (%) (Auto) 0, Blood Urea Nitrogen 62H, Calcium Level 9.2, Carbon Dioxide Level 30, Chloride Level 95L, Creatine Kinase MB 2.1, Creatinine 2.08H, Eosinophils # (Auto) 0.2, Eosinophils (%) (Auto) 2, Estimat Glomerular Filtration Rate 23, Glucose Level 72, Hematocrit 33L, Hemoglobin 10.4L, INR Comment 1.1, Lymphocytes # (Auto) 2.1, Lymphocytes (%) ( Auto) 20, Magnesium Level 2.4, Mean Corpuscular Hemoglobin 30, Mean Corpuscular Hemoglobin Concent 32, Mean Corpuscular Volume 92, Mean Platelet Volume 10.4, Monocytes # (Auto) 0.7, Monocytes (%) (Auto) 6, Neutrophils # (Auto) 7.4, Neutrophils (%) (Auto) 71, Platelet Count 248, Potassium Level 4.1, Prothrombin Time 14.2, Red Blood Count 3.52L, Red Cell Distribution Width 15.1H, Sodium Level 140, Total Bilirubin 1.3H, Total Creatine Kinase 26L, Total Protein 6.8, Troponin I < 0.30, White Blood Count 10.4 11/04/16 01:55: Blane Test YES-POS, Arterial Blood Base Excess 8.0H, Arterial Blood HCO3 37H, Arterial Blood Oxygen Saturation 87L, Arterial Blood Partial Pressure CO2 80*H, Arterial Blood Partial Pressure O2 57L, Arterial Blood Total CO2 40.1H, Arterial Blood pH 7.28*L, Blood Gas Inspired Oxygen 3L, Blood Gas Patient Temperature 95.0, Blood Gas Puncture Site LEFT RADIAL, Blood Gas Ventilator Setting NO 11/04/16 05:00: Blane Test YES-POS, Arterial Blood Base Excess 9.5H, Arterial Blood HCO3 36H, Arterial Blood Oxygen Saturation 100, Arterial Blood Partial Pressure CO2 57H, Arterial Blood Partial Pressure O2 183H, Arterial Blood Total CO2 37.9H, Arterial Blood pH 7.41, Blood Gas Inspired Oxygen 50%, Blood Gas Patient Temperature 95.5, Blood Gas Puncture Site LEFT RADIAL, Blood Gas Ventilator Setting NO 11/04/16 06:58: Alanine Aminotransferase (ALT/SGPT) 16, Albumin 3.5, Alkaline Phosphatase 84, Anion Gap 15H, Aspartate Amino Transf (AST/SGOT) 31, BUN/Creatinine Ratio 29, Basophils # (Auto) 0.0, Basophils (%) (Auto) 0, Blood Urea Nitrogen 61H, Calcium Level 9.3, Carbon Dioxide Level 29, Chloride Level 95L, Creatinine 2.07H , Eosinophils # (Auto) 0.0, Eosinophils (%) (Auto) 0, Estimat Glomerular Filtration Rate 23, Glucose Level 49*L, Hematocrit 32L, Hemoglobin 10.3L, Lymphocytes # (Auto) 0.5L, Lymphocytes (%) (Auto) 7L, Magnesium Level 2.2, Mean Corpuscular Hemoglobin 30, Mean Corpuscular Hemoglobin Concent 32, Mean Corpuscular Volume 93, Mean Platelet Volume 10.4, Monocytes # (Auto) 0.2, Monocytes (%) (Auto) 2, Neutrophils # (Auto) 6.2, Neutrophils (%) (Auto) 91H, Platelet Count 187, Potassium Level 3.7, Red Blood Count 3.48L, Red Cell Distribution Width 15.2H, Sodium Level 139, Total Bilirubin 1.5H, Total Protein 6.7, Troponin I < 0.30, White Blood Count 6.8, Anisocytosis MODERATE, Band Neutrophils 1, Basophils % (Manual) 0, Eosinophils % (Manual) 0, Lymphocytes % ( Manual) 9, Monocytes % (Manual) 0, Neutrophils % (Manual) 90, Phosphorus Level 4.4 11/04/16 07:12: Glucometer 54*L 11/04/16 07:17: Glucometer 104 11/04/16 12:24: Glucometer 198H 11/04/16 16:44: Glucometer 345H Microbiology 11/04/16 Influenza Types A,B Antigen (EMILIA) - Final, Complete A/P-Cardiology Assessment/Admission Diagnosis acute on chronic systolic heart failure Plan IV lasix, strict I/O, salt and water restriction. Improved significantly with iv lasix. Continue rest of the medications. Thank you for your consultation. Please call me if you have any questions. Marshal Navarro MD, FACP, FACC, FSCAI, FHRS, CCDS Interventional Cardiology Cardiac Electrophysiology Vascular Medicine and Endovascular Interventions Clinical Quality Measures DVT/VTE Risk/Contraindication: Contraindications-Pharm: Other *list below* Allison NAVARRO MD Nov 04, 2016 9:05 am
--- NOTE | 2016-11-04 09:15 | Pulmonary Consultation ---
History of Present Illness History of Present Illness Date of Consultation 11/04/16 09:12 Date of Admission History of Present Illness 81yo with hx of CHF and recent admit 09/21 for same symptoms from [facility] presented to ED secondary to worsening SOB. CXR shows pulmonary edema BNP 1470. PT was requiring BiPAP however she is now much improved after lasix. I am consulted for pulmonary management. Allergies and Home Medications Allergies Coded Allergies: No Known Drug Allergies (Unverified , 09/28/16) Home Medications 10 ML PO DAILY (Reported) Acetaminophen 650 Mg Tablet.er 650 MG PO Q6H PRN PRN PAIN (Reported) Apixaban 2.5 Mg Tablet 2.5 MG PO DAILY (Reported) Aspirin 81 Mg Tabec 81 MG PO DAILY (Reported) Bisacodyl 10 Mg Supp.rect 10 MG RC DAILY PRN PRN CONSTIPATION (Reported) Carvedilol 3.125 Mg Tablet 3.125 MG PO BID (Reported) Cetirizine HCl 10 Mg Capsule 10 MG PO DAILY (Reported) Cholecalciferol (Vitamin D3) 1,000 Unit Capsule 1,000 UNIT PO DAILY (Reported) Clopidogrel Bisulfate 75 Mg Tablet 75 MG PO DAILY (Reported) Diltiazem HCl 240 Mg Cap.er.24h 240 MG PO DAILY (Reported) Donepezil HCl 10 Mg Tablet 10 MG PO HS (Reported) Famotidine 10 Mg Tablet 10 MG PO AC PRN PRN HEARTBURN (Reported) Furosemide 80 Mg Tablet 80 MG PO DAILY (Reported) Furosemide 40 Mg Tablet 40 MG PO 1400 (Reported) Glipizide 10 Mg Tablet 10 MG PO DAILY (Reported) Insulin Determir 1,000 Units/10 Ml Soln #3 15 UNIT SQ HS Prescribed by: ELKIN THORPE on 10/05/16 0832 Insulin Regular, Human 1,000 Units/10 Ml Soln #1 0 UNIT SC ACHS U = UNITS FOR: FSBS 151-200 GIVE 4 U, 201-250 GIVE 6 U, 251-300 GIVE 8 U, 301 -350 GIVE 10 U, 351-400 GIVE 12 U, >400 CALL DOCTOR Prescribed by: ELKIN THORPE on 10/05/16 0832 Levalbuterol HCl 1.25 Mg/0.5 Ml Vial.neb 1.25 MG NEB TID (Reported) Levalbuterol HCl 1.25 Mg/0.5 Ml Vial.neb 1.25 MG IH DAILY PRN PRN SHORTNESS OF BREATH (Reported) Lidocaine HCl 76.5 Gm Cream..g. TP QID PRN PRN PAIN (Reported) Loperamide HCl 2 Mg Capsule 2 MG PO Q4H PRN PRN DIARRHEA (Reported) MAX OF 4 CAPSULES DAILY Magnesium Hydroxide 400 Mg/5 Ml Oral.susp 30 ML PO DAILY PRN PRN CONSTIPATION ( Reported) Magnesium Oxide 400 Mg Tablet 400 MG PO BID (Reported) Metolazone 2.5 Mg Tablet 2.5 MG PO DAILY (Reported) Nystatin 15 Gm Cream..g. TP BID (Reported) Pantoprazole Sodium 40 Mg Tablet.dr 40 MG PO DAILY (Reported) Potassium Chloride 20 Meq/15 Ml Liquid 15 ML PO BID (Reported) Simvastatin 40 Mg Tablet 40 MG PO HS (Reported) Spironolactone 25 Mg Tablet 25 MG PO DAILY (Reported) Vitamin B Complex 1 Each Capsule 1 CAP PO DAILY (Reported) Past Luobzei-Dwtbbl-Jgtuhc Hx Patient Social History Alcohol Use: Denies Use Recreational Drug Use: No Smoking Status: Never a Smoker Recent Foreign Travel: No Contact w/Someone Who Travel: No Recent Infectious Disease Expo: No Recent Hopitalizations: No Physical Abuse Screen: No Sexual Abuse: No Seasonal Allergies Seasonal Allergies: No Surgeries HX Surgeries: Yes Surgeries: Appendectomy, Cardiac, CABG, Gallbladder, Hysterectomy, Orthopedic Respiratory Hx Respiratory Disorders: Yes (PULMONARY EDEMA; CHRONIC RESPIRATORY FAILURE AND HYPOXIA-O2 DEPENDENT) Respiratory Disorders: Pneumonia Cardiovascular Hx Cardiac Disorders: Yes (congestive heart failure; PULMONARY EDEMA) Cardiac Disorders: Coronary Artery Disease, Heart Attack, Hypertension Neurological Hx Neurological Disorders: Yes (LEFT SIDE WEAKNESS) Neurological Disorders: Dementia, Stroke, TIA Reproductive System : No Hx Reproductive Disorders: No HEALTH SCIENCES MANAGER History: Hysterectomy Genitourinary Hx Genitourinary Disorders: Yes Genitourinary Disorders: Renal Failure, UTI-Chronic Gastrointestinal Gastrointestinal Disorders: Abdominal Hernia, Gastroesophageal Reflux, Obstructive Bowel, Chronic Diarrhea Musculoskeletal Hx Musculoskeletal Disorders: Yes (muscle weakness, hemiplegia l side; GAIT DISTURBANCE; FALLS) Endocrine Hx Endocrine Disorders: Yes Endocrine Disorders: Diabetes, Insulin dep, Hypothyroidsim HEENT HX ENT Disorders: Yes HEENT Disorders: Cataract Cancer Hx Cancer: No Psychosocial Hx Psychiatric Problems: No Integumentary HX Skin/Integumentary Disorder: No Blood Transfusions Hx Blood Disorders: No Family Medical History Family Medial History: Completed stroke 19 MOTHER G8 BROTHER Hypertension 19 FATHER 19 MOTHER G8 BROTHER G8 SISTER Myocardial infarction 19 FATHER Exam Exam Vital Signs Date Time Temp Pulse Resp B/P Pulse Ox O2 Delivery O2 Flow Rate FiO2 11/04/16 09:00 102 22 116/91 99 Nasal Cannula 3.00 11/04/16 08:00 96 19 113/87 100 Nasal Cannula 3.00 11/04/16 07:53 92 13 100 50.00 11/04/16 07:00 87 15 109/65 100 Nasal Cannula 3.00 11/04/16 07:00 94 11/04/16 06:33 90 15 100 50.00 11/04/16 03:40 96 11/04/16 03:31 96 11/04/16 03:05 95.5 92 26 100 NIV/Bilevel 50 11/04/16 02:14 112 26 100 50 11/04/16 01:59 95 Nasal Cannula 3 11/04/16 01:20 95.0 102 20 145/82 92 Nasal Cannula 3 I & O 11/04/16 07:00 Intake Total 0 ml Output Total 475 ml Balance -475 ml General Appearance: No Apparent Distress HEENT: Normal ENT Inspection Neck: Normal Inspection Respiratory: Normal Breath Sounds No Respiratory Distress Cardiovascular: Regular Rate, Rhythm Capillary Refill: Greater Than 3 Seconds Gastrointestinal: non tender soft Results Lab Laboratory Tests 11/04/16 01:24 11/04/16 06:58 Assessment/Plan Assessment/Plan Acute on chronic cardiomyopathy with EF of 20 -lasix -cardiology following Pulmonary edema Hypoxia -oxygen PRN for Sp02 90-95% Clinical Quality Measures DVT/VTE Risk/Contraindication: Contraindications-Pharm: Other *list below* LINNEA SMALLS DO Nov 04, 2016 09:15 Clinical Quality Measures DVT/VTE Risk/Contraindication: Contraindications-Pharm: Other *list below* LINNEA SMALLS DO Nov 04, 2016 09:15
[2016-11-04] MEDS ORDERED: GLIP10TA13 PO (09:33)
[2016-11-04] MEDS ORDERED: LEVA1.2521 IH (09:33)
--- NOTE | 2016-11-04 11:25 | Diagnostic Imaging Report ---
Portable upright radiograph of the chest. INDICATION: Dyspnea. COMPARISON: 11/04/2016. FINDINGS: The heart size is moderately enlarged. There is perihilar and bibasilar infiltrate and small/moderate pleural effusions. The findings are likely secondary to CHF and demonstrate minimal improvement in aeration of the upper and mid lung colon compared to previous study performed 7 hours prior to this exam. No pneumothorax. IMPRESSION: Minimal improvement in pulmonary edema. Dictated by: Dictated on workstation # [id number]
[2016-11-04] MEDS: CATHETER FLUSH 10 ML SYR IV SCH ×2 (14:50→23:03)
[2016-11-05] VITALS (23 sets, daily range): BP systolic 83–118; BP diastolic 53–84
[2016-11-05] MEDS ORDERED: LOPERAMIDE 2 MG (IMODIUM) CAP PO PRN
[2016-11-05] MEDS ORDERED: NON-FORMULARY MEDICATION 1 EA EA (Famotidine (Pepcid AC) 10 MG) PO PRN
[2016-11-05] MEDS ORDERED: BISACODYL 10 MG SUPP (DULCOLAX) RC PRN
[2016-11-05] MEDS ORDERED: 1/2 NS IV SOLUTION 1,000 ML IV SCH (00:15)
[2016-11-05] MEDS ORDERED: ACETAMINOPHEN 500 MG TAB (TYLENOL) PO PRN (00:15)
[2016-11-05] MEDS ORDERED: FAMOTIDINE 20 MG (PEPCID) TABLET PO PRN (00:30)
[2016-11-05] MEDS ORDERED: inSUlin DETERMIR 1 UNIT/0.01 ML (LEVEMIR) CHARGE PER UNIT SQ ONE ×2 (00:35→21:26)
[2016-11-05] MEDS ORDERED: DILTIAZEM 240 MG (CARDIZEM CD) CAP PO ONE (00:35)
[2016-11-05] MEDS ORDERED: CARVEDILOL 3.125 MG (COREG) TABLET ONE (00:35)
[2016-11-05] MEDS ORDERED: ALBUMIN 5% 12.5 GM/250 ML 500 ML IV ONE (00:44)
[2016-11-05] MEDS ORDERED: ALBUMIN 5% 12.5 GM/250 ML 250 ML IV SCH (01:15)
[2016-11-05] MEDS: methylPREDNISolone 125 MG (Solu-MEDROL) VIAL IV SCH (01:32)
[2016-11-05] MEDS: RT-ALBUTEROL/IPRATROPIUM 3 ML (DUONEB) VIAL INH SCH ×2 (02:31→05:53)
[2016-11-05 03:26] LABS: BASOPHILS % (AUTO) 0 % (0-10); EOSINOPHILS % (AUTO) 0 % (0-10); LYMPHOCYTES # (AUTO) 0.4 X 10^3 (1.0-4.0); LYMPHOCYTES % (AUTO) 8 % (12-44); MEAN CORPUSCULAR HEMOGLOBIN 29 PG (25-34); MEAN CORPUSCULAR HGB CONC 32 G/DL (32-36); MEAN CORPUSCULAR VOLUME 91 FL (80-99); MEAN PLATELET VOLUME 10.8 FL (7.4-10.4); MONOCYTES # (AUTO) 0.3 X 10^3 (0.0-1.0); MONOCYTES % (AUTO) 4 % (0-12); NEUTROPHILS % (AUTO) 88 % (42-75); PLATELET COUNT 173 10^3/uL (130-400); RED BLOOD COUNT 2.96 10^6/uL (4.35-5.85); RED CELL DISTRIBUTION WIDTH 14.9 % (10.0-14.5); WHITE BLOOD COUNT 5.7 10^3/uL (4.3-11.0)
[2016-11-05 03:44] LABS: CALCIUM 8.6 MG/DL (8.5-10.1); CREATININE SERUM 2.49 MG/DL (0.60-1.30); MAGNESIUM 2.2 MG/DL (1.8-2.4); PHOSPHORUS 4.2 MG/DL (2.3-4.7); POTASSIUM 3.8 MMOL/L (3.6-5.0)
[2016-11-05] MEDS ORDERED: KCL 20 MEQ POWDER FOR ORAL SOLUTION ONE (04:21)
[2016-11-05] MEDS: KCL 20 MEQ TAB (K-DUR) PO SCH (04:27)
[2016-11-05] MEDS: KCL 20 MEQ POWDER FOR ORAL SOLUTION PO SCH ×2 (04:34→21:36)
[2016-11-05] MEDS ORDERED: POTASSIUM CL 10MEQ/50ML IVPB 50 ML IV SCH (06:00)
[2016-11-05] MEDS ORDERED: MAGNESIUM 1 GM/100 ML IVPB 100 ML IV SCH (06:00)
[2016-11-05] MEDS: inSUlin (REGULAR) HUMAN 1 UNIT/0.01 ML (CHARGE PER UNIT) SC SCH ×4 (06:24→21:35)
[2016-11-05] MEDS: CATHETER FLUSH 10 ML SYR IV SCH (06:24)
--- NOTE | 2016-11-05 07:43 | Pulmonary Progress Note ---
Subjective Subjective/Events-last exam No complications noted. Exam Exam Vital Signs Date Time Temp Pulse Resp B/P Pulse Ox O2 Delivery O2 Flow Rate FiO2 11/05/16 06:00 107 12 100/68 100 Nasal Cannula 3.00 11/05/16 05:55 96 Nasal Cannula 2.00 11/05/16 05:00 112 19 105/63 100 Nasal Cannula 3.00 11/05/16 04:00 122 14 93/53 100 Nasal Cannula 3.00 11/05/16 04:00 97 Nasal Cannula 2.00 11/05/16 04:00 97.2 11/05/16 03:00 113 18 97/59 100 Nasal Cannula 3.00 11/05/16 02:31 100 Nasal Cannula 2.00 11/05/16 02:00 116 30 92/64 100 Nasal Cannula 3.00 11/05/16 01:00 125 11/05/16 01:00 113 27 105/71 100 Nasal Cannula 3.00 11/05/16 00:00 97 Nasal Cannula 2.00 11/05/16 00:00 98.2 11/05/16 00:00 135 18 111/75 99 Nasal Cannula 3.00 11/04/16 23:19 100 Nasal Cannula 2.00 11/04/16 23:00 115 20 112/62 100 Nasal Cannula 3.00 11/04/16 22:00 121 17 108/74 98 Nasal Cannula 3.00 11/04/16 21:00 118 18 117/70 100 Nasal Cannula 3.00 11/04/16 20:00 97.6 11/04/16 20:00 97 Nasal Cannula 2.00 11/04/16 20:00 126 18 113/79 93 Nasal Cannula 3.00 11/04/16 19:00 141 11/04/16 19:00 141 18 103/69 100 Nasal Cannula 3.00 11/04/16 18:23 98 Nasal Cannula 2.00 11/04/16 18:00 125 18 96/61 100 Nasal Cannula 3.00 11/04/16 17:00 125 18 86/65 90 Nasal Cannula 3.00 11/04/16 16:05 96.6 11/04/16 16:00 128 19 108/85 100 Nasal Cannula 3.00 11/04/16 16:00 97 Nasal Cannula 2.00 11/04/16 15:28 94 Nasal Cannula 2.00 11/04/16 15:00 114 14 90/77 100 Nasal Cannula 3.00 11/04/16 14:00 112 18 101/73 Nasal Cannula 3.00 11/04/16 13:00 112 20 112/66 Nasal Cannula 3.00 11/04/16 13:00 114 11/04/16 12:00 97 Nasal Cannula 2.00 11/04/16 12:00 96.7 11/04/16 12:00 100 17 127/92 99 Nasal Cannula 3.00 11/04/16 11:07 97 Nasal Cannula 2.00 11/04/16 11:00 105 20 130/84 94 Nasal Cannula 3.00 11/04/16 10:00 108 14 120/66 89 Nasal Cannula 3.00 11/04/16 09:00 102 22 116/91 99 Nasal Cannula 3.00 11/04/16 08:00 96 19 113/87 100 Nasal Cannula 3.00 11/04/16 08:00 97 Nasal Cannula 2.00 11/04/16 08:00 96.5 11/04/16 07:53 92 13 100 50.00 I & O 11/05/16 07:00 Intake Total 1220 ml Output Total 750 ml Balance 470 ml General Appearance: No Apparent Distress HEENT: Normal ENT Inspection Neck: Normal Inspection Respiratory: Normal Breath Sounds No Respiratory Distress Cardiovascular: Regular Rate, Rhythm Capillary Refill: Greater Than 3 Seconds Gastrointestinal: non tender soft Results Lab Laboratory Tests 11/04/16 01:24 11/04/16 06:58 11/05/16 03:14 Assessment/Plan Assessment/Plan Acute on chronic cardiomyopathy with EF of 20 -lasix -- change to 40mg daily secondary to worsening renal function -cardiology following Pulmonary edema Acute on chronic renal failure -monitor close may need to hold lasix today. Hypoxia -oxygen PRN for Sp02 90-95% transfer to [facility] when ok with cardiology. Clinical Quality Measures DVT/VTE Risk/Contraindication: Contraindications-Pharm: Other *list below* LINNEA SMALLS DO Nov 05, 2016 07:43 LINNEA SMALLS DO Nov 05, 2016 07:43 LINNEA SMALLS DO Nov 05, 2016 07:43
--- NOTE | 2016-11-05 08:31 | Progress Note (SOAP) ---
Subjective Subjective/Events-last exam patient is feeling much better today. Guardian sees the patient feeling good. Patient has cardiomyopathy, renal insufficiency and hypoxia Objective Exam Vital Signs Date Time Temp Pulse Resp B/P Pulse Ox O2 Delivery O2 Flow Rate FiO2 11/05/16 08:00 95 Nasal Cannula 11/05/16 06:00 107 12 100/68 100 Nasal Cannula 3.00 11/05/16 05:55 96 Nasal Cannula 2.00 11/05/16 05:00 112 19 105/63 100 Nasal Cannula 3.00 11/05/16 04:00 122 14 93/53 100 Nasal Cannula 3.00 11/05/16 04:00 97 Nasal Cannula 2.00 11/05/16 04:00 97.2 11/05/16 03:00 113 18 97/59 100 Nasal Cannula 3.00 11/05/16 02:31 100 Nasal Cannula 2.00 11/05/16 02:00 116 30 92/64 100 Nasal Cannula 3.00 11/05/16 01:00 125 11/05/16 01:00 113 27 105/71 100 Nasal Cannula 3.00 11/05/16 00:00 97 Nasal Cannula 2.00 11/05/16 00:00 98.2 11/05/16 00:00 135 18 111/75 99 Nasal Cannula 3.00 11/04/16 23:19 100 Nasal Cannula 2.00 11/04/16 23:00 115 20 112/62 100 Nasal Cannula 3.00 11/04/16 22:00 121 17 108/74 98 Nasal Cannula 3.00 11/04/16 21:00 118 18 117/70 100 Nasal Cannula 3.00 11/04/16 20:00 97.6 11/04/16 20:00 97 Nasal Cannula 2.00 11/04/16 20:00 126 18 113/79 93 Nasal Cannula 3.00 11/04/16 19:00 141 11/04/16 19:00 141 18 103/69 100 Nasal Cannula 3.00 11/04/16 18:23 98 Nasal Cannula 2.00 11/04/16 18:00 125 18 96/61 100 Nasal Cannula 3.00 11/04/16 17:00 125 18 86/65 90 Nasal Cannula 3.00 11/04/16 16:05 96.6 11/04/16 16:00 128 19 108/85 100 Nasal Cannula 3.00 11/04/16 16:00 97 Nasal Cannula 2.00 11/04/16 15:28 94 Nasal Cannula 2.00 11/04/16 15:00 114 14 90/77 100 Nasal Cannula 3.00 11/04/16 14:00 112 18 101/73 Nasal Cannula 3.00 11/04/16 13:00 112 20 112/66 Nasal Cannula 3.00 11/04/16 13:00 114 11/04/16 12:00 97 Nasal Cannula 2.00 11/04/16 12:00 96.7 11/04/16 12:00 100 17 127/92 99 Nasal Cannula 3.00 11/04/16 11:07 97 Nasal Cannula 2.00 11/04/16 11:00 105 20 130/84 94 Nasal Cannula 3.00 11/04/16 10:00 108 14 120/66 89 Nasal Cannula 3.00 11/04/16 09:00 102 22 116/91 99 Nasal Cannula 3.00 I & O 11/05/16 07:00 Intake Total 1220 ml Output Total 750 ml Balance 470 ml Capillary Refill : Greater Than 3 Seconds General Appearance: No Apparent Distress WD/WN HEENT: Normal ENT Inspection Neck: Normal Inspection Respiratory: Chest Non Tender Normal Breath Sounds No Accessory Muscle Use No Respiratory Distress Cardiovascular: Regular Rate, Rhythm No Murmur Gastrointestinal: non tender soft Results Lab Laboratory Tests 11/05/16 03:14 Laboratory Tests 11/04/16 12:24: Glucometer 198H 11/04/16 16:44: Glucometer 345H 11/04/16 20:51: Glucometer 389H 11/05/16 00:20: Glucometer 354H 11/05/16 03:14: Anion Gap 16H, B-Type Natriuretic Peptide 1470.4H, BUN/Creatinine Ratio 27, Basophils # (Auto) 0.0, Basophils (%) (Auto) 0, Blood Urea Nitrogen 68H, Calcium Level 8.6, Carbon Dioxide Level 27, Chloride Level 91L, Creatinine 2.49H , Eosinophils # (Auto) 0.0, Eosinophils (%) (Auto) 0, Estimat Glomerular Filtration Rate 19, Glucose Level 287H, Hematocrit 27L, Hemoglobin 8.6L, Lymphocytes # (Auto) 0.4L, Lymphocytes (%) (Auto) 8L, Magnesium Level 2.2, Mean Corpuscular Hemoglobin 29, Mean Corpuscular Hemoglobin Concent 32, Mean Corpuscular Volume 91, Mean Platelet Volume 10.8H, Monocytes # (Auto) 0.3, Monocytes (%) (Auto) 4, Neutrophils # (Auto) 5.0, Neutrophils (%) (Auto) 88H, Phosphorus Level 4.2, Platelet Count 173, Potassium Level 3.8, Red Blood Count 2.96L, Red Cell Distribution Width 14.9H, Sodium Level 134L, White Blood Count 5.7 11/05/16 06:02: Glucometer 359H Microbiology 11/04/16 Influenza Types A,B Antigen (EMILIA) - Final, Complete Assessment/Plan Assessment/Plan Assess & Plan/Chief Complaint acute on chronic cardiomyopathy with ejection fraction of 20 percent. Pulmonary edema. Acute on chronic renal failure. Hypoxia Diagnosis/Problems: Clinical Quality Measures DVT/VTE Risk/Contraindication: Contraindications-Pharm: Other *list below* OLI HAMMER DO Nov 05, 2016 08:31
[2016-11-05] MEDS: SPIRONOLACTONE 25 MG (ALDACTONE) TAB PO SCH (08:35)
[2016-11-05] MEDS: METOLAZONE 2.5 MG (ZAROXOLYN) TAB PO SCH (08:35)
[2016-11-05] MEDS: CARVEDILOL 3.125 MG (COREG) TABLET PO SCH ×2 (08:35→21:36)
[2016-11-05] MEDS: VITAMIN D3 1,000 UNITS (CHOLECALCIFEROL) TABLET PO SCH (08:36)
[2016-11-05] MEDS: ASPIRIN E.C. 81 MG (ECOTRIN) TAB PO SCH (08:36)
[2016-11-05] MEDS: CLOPIDOGREL 75 MG (PLAVIX) TABLET PO SCH (08:36)
[2016-11-05] MEDS: MAGNESIUM OXIDE (MAG-OX)400 MG TAB PO SCH ×2 (08:36→21:39)
[2016-11-05] MEDS ORDERED: DILTIAZEM 240 MG (CARDIZEM CD) CAP PO SCH (09:00)
[2016-11-05] MEDS ORDERED: NON-FORMULARY MEDICATION 1 EA EA (Cholecalciferol (Vitamin D3) (Vitamin D) 1,000 UNIT) PO SCH (09:00)
[2016-11-05] MEDS ORDERED: POTASSIUM CHLORIDE PO SCH (09:00)
[2016-11-05] MEDS ORDERED: MILK OF MAGNESIA 400 MG/5 ML 30 ML UDC PO PRN (09:15)
[2016-11-05] MEDS ORDERED: ACETAMINOPHEN 325 MG TABLET/CAPLET (TYLENOL) PO PRN (09:15)
[2016-11-05] MEDS ORDERED: CAL. POLYCARBOPHIL 625 MG (FIBERCON) TAB PO PRN (09:15)
[2016-11-05] MEDS ORDERED: RT-LEVALBUTEROL (XOPENEX) 1.25 MG/3 ML NEB NON-FORMULARY INH PRN (09:15)
[2016-11-05] MEDS ORDERED: TROLAMINE (ASPERCREME) 10% CR 90 GM TUBE TOP PRN (09:15)
--- NOTE | 2016-11-05 09:52 | Diagnostic Imaging Report ---
EXAMINATION: Chest radiograph, portable AP view. DATE: November 05, 2016, at 0519 hours. INDICATION: 81-year-old female, history of congestive heart failure. COMPARISON: November 04, 2016. FINDINGS: There are median sternotomy wires. There is no identified pneumothorax. There is persistent bibasilar airspace consolidation. There is fluid in the right minor fissure. There are likely bilateral pleural effusions. Overall appearance of the lungs is essentially unchanged since comparison exam. Stable overall appearance of the cardiomediastinal silhouette. IMPRESSION: Unchanged bibasilar airspace consolidation and bilateral pleural effusions with fluid in the right minor fissure. Dictated by: Dictated on workstation # [id number]
[2016-11-05] MEDS ORDERED: RT-ALBUTEROL SULF 2.5 MG/3 ML PRE-MIX VIAL INH PRN (10:30)
--- NOTE | 2016-11-05 11:56 | Physical Therapy Evaluation ---
PT Evaluation-General Medical Diagnosis Admission Date Nov 04, 2016 at 01:40 Medical Diagnosis: CHF with hypoxia Onset Date: Nov 04, 2016 Therapy Diagnosis Therapy Diagnosis: general debility Height/Weight Height (Feet): 5 Height (Inches): 0.00 Weight (Pounds): 179 Weight (Ounces): 5.0 Precautions Precautions/Isolations: Fall Prevention, Standard Precautions, Pressure Ulcer Referral Physician: Andrew Reason for Referral: Evaluation/Treatment Medical History Pertinent Medical History: CABG, CAD, CVA, DM, Dementia, GERD, HTN, [place], Renal Insufficiency Additional Medical History EF 20% Current History nonambulatory at [facility] per family/transfers only to w/c Reviewed History: Yes Social History Home: Intermediate Prior/Core FIM Prior Level of Function Functional [place] Measure 0=Not Assessed/NA 4=Minimal Assistance 1=Total Assistance 5=Supervision or Setup 2=Maximal Assistance 6=Modified [place] 3=Moderate Assistance 7=Complete [place] Bed Mobility: 2 Transfers (B,C,W/C) (FIM): 3 Gait: 0 PT Evaluation-Current Subjective Patient is up in chair with family present. Pain Numeric Pain Scale: 0-No Pain Location: No Pain Reported Objective Patient Orientation: Confused Problem Solving: Poor Attachments: Horner Catheter ROM/Strength ROM Lower Extremities bilateral LE WFL Strenght Lower Extremities left LE 3-/5 grossly; right LE 3/5 grossly Integumentary/Posture Integumentary refer to nursing notes Bladder Incontinence: Horner Cath Posture flexed hip posture in stand Neuromuscular (Tone, Coordination, Reflexes) severely diminished coordination with minimal activity Sensory Vision: Functional Hearing: Impaired Sensation Right Lower Extremit: Impaired Sensation Left Lower Extremity: Impaired Transfers Functional [place] Measure 0=Not Assessed/NA 4=Minimal Assistance 1=Total Assistance 5=Supervision or Setup 2=Maximal Assistance 6=Modified [place] 3=Moderate Assistance 7=Complete [place] Transfers (B, C, W/C) (FIM): 3 Scootin Sit to/from Stand: 3 with sit to stand transfers patient displays the following; elevated HR >140, decreased BP 97/44; decreased SAO2 on RA to 62% with 30 sec recovery Balance Sitting Static: Fair Sitting Dynamic: Fair Standing Static: Fair Assessment/Needs 81 y.o. obese female, will benefit from short term skilled PT to address functional strength to improve transfers. Patient is very limited due to decrease BP, elevated HR, and decreased SAO2. Rehab Potential: Fair PT Correction Goals Rn Occupational Goals PT Rn Occupational Goals Time Frame: Nov 11, 2016 Transfers (B,C,W/C) (FIM): 4 PT Plan Problem List Problem List: Activity Tolerance, Functional Strength, Safety, Balance, Gait, Transfer, Bed Mobility Treatment/Plan Treatment Plan: Continue Plan of Care Treatment Plan: Bed Mobility, Education, Functional Activity Jessica, Functional Strength, Safety, Therapeutic Exercise, Transfers Treatment Duration: Nov 11, 2016 # of days/week 5-6 Visits Per Week: 5-6 Pt/Family Agrees w/Plan: Yes Time/GCodes Time In: 1115 Time Out: 1130 Total Billed Treatment Time: 15 Total Billed Treatment 1 visit EVS 15 min G Codes Necessary: RENETTA Gavin PT Nov 05, 2016 11:56
--- NOTE | 2016-11-05 12:20 | Occupational Therapy Eval ---
OT Evaluation-General/PLF Medical Diagnosis Admission Date Nov 04, 2016 at 01:40 Medical Diagnosis: CHF with hypoxia Onset Date: Nov 04, 2016 Therapy Diagnosis Therapy Diagnosis: CHF Height/Weight Height (Feet): 5 Height (Inches): 0.00 Weight (Pounds): 179 Weight (Ounces): 5.0 Precautions Precautions/Isolations: Fall Prevention, Standard Precautions, Pressure Ulcer Referral Physician: Andrew Referral Reason: Evaluation/Treatment Medical History Pertinent Medical History: CABG, CAD, CVA, DM, Dementia, GERD, HTN, [place], Renal Insufficiency Current History Patient admitted from [facility] to the hospital on 11/04/16 due to the CHF with increased shortness of breath. Social History Home: [facility] ADL-Prior Level of Function ADL PLOF Comments OT spoke with family by phone to assess ADL status at facility. Her niece reported she could feed self and do simple hygiene when seated. She could also apply make-up. She required assistance with bathing and dressing due to the shortness of breath. She was ambulatory with a walker for short distances. OT Current Status Subjective "I can't talk right now, I can't hardly breath." Appearance Patient in recliner at side of bed. Her brother is present. He gave some history as to the situation at the nursing facility where she has been a patient for about 6 months. Her niece then called and the brother asked that I speak with her about patient status. Mental Status/Objective Patient Orientation: Person, Place, Situation Current Glasses/Contacts: Yes Hearing Aids: No Dentures/Partials: Yes Hand Dominance: Right Upper Extremity ROM Functional for needs. No arthritis reported. Upper Extremity Coordination Appears to be intact. Upper Extremity Sensation Intact per report Upper Extremity Strength Functional but endurance limited at this time due to breathing difficulty. Edema: None present in the legs, but is in the abdomen. ADL-Treatment ADL-Current Dependent in care presently. Niece reports she had difficulty feeding herself or setting up tray. Functional [place] Measure 0=Not Assessed/NA 4=Minimal Assistance 1=Total Assistance 5=Supervision or Setup 2=Maximal Assistance 6=Modified [place] 3=Moderate Assistance 7=Complete IndependenceIRFPAI Quality Coding Scale 6 Independent with activity with or without an assistive device 5 Patient requires set up or clean up by helper. Patient completes activity by themselves 4 Supervision or touching assist (CGA). [place] provide cues , steadying assist 3 The helper provides less than half the effort to complete the activity 2 The helper provides more than half the effort to complete the activity 1 Dependent. The helper does all the effort to complete an activity 7 Patient refused to complete or attempt activity 9 The patient did not perform the activity before the current illness or injury 88 Not attempted due to Medical conditions or safety concerns Other Treatments FIM scores not established at this time. Initial assessment only while in ICU. OT Short Term Goals Short Term Goals Time Frame: Nov 11, 2016 Eating(FIM): 5 Grooming(FIM): 5 Bathing(FIM): 4 Upper Body Dressing(FIM): 4 Lower Body Dressing(FIM): 3 Toileting(FIM): 3 Transfers (B,C,W/C) (FIM): 4 Toilet/Commode Transfer(FIM): 4 Additional Short Term Goals: 1-Demonstrate ADL Tasks, 2-Verbalize Understanding , 3-ImproveStrength/Jessica 1=Demonstrate adherence to instructed precautions during ADL tasks. 2=Patient will verbalize/demonstrate understanding of assistive devices/ modifications for ADL. 3=Patient will improve strength/tolerance for activity to enable patient to perform ADL's. OT Rn Wellness Goals Correction Goals Time Frame: 14 days Eating (FIM): 6 Grooming(FIM): 6 Bathing(FIM): 4 Upper Body Dressing(FIM): 4 Lower Body Dressing(FIM): 5 Toileting(FIM): 5 Transfers (B,C,W/C) (FIM): 5 Toilet/Commode Transfer(FIM): 5 1=Demonstrate adherence to instructed precautions during ADL tasks. 2=Patient will verbalize/demonstrate understanding of assistive devices/ modifications for ADL. 3=Patient will improve strength/tolerance for activity to enable patient to perform ADL's. OT Education/Plan Problem List/Assessment Assessment: Decreased Activ Tolerance, Edema, Impaired Bed Mobility, Impaired Funct Balance, Impaired Self-Care Skills Discharge Recommendations Plan/Recommendations: Continue POC Barriers to Progress CHF Target Placement Nursing facility Treatment Plan/Plan of Care Treatment,Training & Education: Yes Patient would benefit from OT for education, treatment and training to promote independence in ADL's, mobility, safety and/or upper extremity function for ADL' s. Plan of Care: ADL Retraining, Functional Mobility, UE Funct Exercise/Act # of days/week Daily, Monday-Monday, as needed Monday Agreement: Yes Rehab Potential: Guarded Time/GCodes Start Time: 11:45 Stop Time: 12:05 Total Time Billed (hr/min): 20 Billed Treatment Time Visit, Apple Hernandez Codes Necessary: JEREMIAH Haddad OT Nov 05, 2016 12:20
[2016-11-05] MEDS ORDERED: FUROSEMIDE 40 MG (LASIX) TAB PO SCH (14:00)
[2016-11-05] MEDS ORDERED: RT-LEVALBUTEROL (XOPENEX) 1.25 MG/3 ML NEB NON-FORMULARY INH SCH (14:00)
[2016-11-05] MEDS: RT-ALBUTEROL SULF 2.5 MG/3 ML PRE-MIX VIAL INH SCH ×2 (14:23→21:19)
--- NOTE | 2016-11-05 15:46 | Cardiology Progress Note ---
Cardiology SOAP Progress Note Subjective: still complains of shortness of breath. Objective: I&O/Vital Signs Vital Sign - Last 12Hours 11/05/16 11/05/16 11/05/16 11/05/16 04:00 04:00 04:00 05:00 Temp 97.2 Pulse 122 112 Resp 14 19 B/P 93/53 105/63 Pulse Ox 97 100 100 O2 Delivery Nasal Cannula Nasal Cannula Nasal Cannula O2 Flow Rate 2.00 3.00 3.00 11/05/16 11/05/16 11/05/16 11/05/16 05:55 06:00 07:00 08:00 Pulse 107 108 Resp 12 B/P 100/68 Pulse Ox 96 100 95 O2 Delivery Nasal Cannula Nasal Cannula Nasal Cannula O2 Flow Rate 2.00 3.00 11/05/16 11/05/16 11/05/16 12:00 14:07 14:25 Pulse 113 Pulse Ox 95 96 O2 Delivery Nasal Cannula Room Air Intake and Output 11/05/16 00:00 Intake Total 980 ml Output Total 610 ml Balance 370 ml Weight (Pounds): 179 Weight (Ounces): 5.0 Weight (Calculated Kilograms): 81.558930 Constitutional: No appears stated age, No AAO x 3, No apparent distress, No PERRL, No well-developed, No well-nourished, No other Respiratory: rhonchi Cardiovascular: No regular rate-rhythm, No irregularly irregular, No extra beats, No parasternal heave is noted, No JVD, No edema, No bradycardia, No tachycardia, No point of maximal impulse, No cardiac thrills are palpable, No S1 and S2, No gallop/S3, No gallop/S4, No diastolic murmur, No systolic murmur, No friction rub, No click, No other Gastrointestional: No tender, No soft, No round, No distended, No pulsatile mass, No organomegaly, No guarding, No rebound, No tenderness, No hernia, No mass, No audible bowel sounds, No abnormal bowel sounds, No abdominal bruits, No spleenomegaly, No other Extremities: No normal range of motion, No non-tender, No normal inspection, No pedal edema, No calf tenderness, No normal capillary refill, No pelvis stable , No calf tenderness, No inflammation, No pedal edema, No slow capillary refill , No swelling, No other, No abrasion, No clubbing, No cyanosis, No ecchymosis, No laceration, No no lower extremity edema bilateral, No significant edema, No tenderness, No wound Neurologic/Psychiatric: No alpaca farmer II-XII nml as tested, No no motor/sensory deficits, No alert, No normal mood/affect, No oriented x 3, No abnormal cerebellar tests, No abnormal alpaca farmer II-XII, No abnormal gait, No aphasia, No EOM palsy, No facial droop, No motor weakness, No sensory deficit, No depressed affect, No disoriented x 3, No other, No grossly intact, No power is 5/5 both on sides Skin: No normal color, No warm/dry, No cyanosis, No cool, No diaphoresis, No damp, No ecchymosis, No jaundice, No mottled, No pallor, No rash, No tattoos/ piercings, No ulcerations, No rash on exposed areas, No ulcerations on exposed areas, No other Results/Procedures: Labs Laboratory Tests 11/04/16 16:44: Glucometer 345H 11/04/16 20:51: Glucometer 389H 11/05/16 00:20: Glucometer 354H 11/05/16 03:14: Anion Gap 16H, B-Type Natriuretic Peptide 1470.4H, BUN/Creatinine Ratio 27, Basophils # (Auto) 0.0, Basophils (%) (Auto) 0, Blood Urea Nitrogen 68H, Calcium Level 8.6, Carbon Dioxide Level 27, Chloride Level 91L, Creatinine 2.49H , Eosinophils # (Auto) 0.0, Eosinophils (%) (Auto) 0, Estimat Glomerular Filtration Rate 19, Glucose Level 287H, Hematocrit 27L, Hemoglobin 8.6L, Lymphocytes # (Auto) 0.4L, Lymphocytes (%) (Auto) 8L, Magnesium Level 2.2, Mean Corpuscular Hemoglobin 29, Mean Corpuscular Hemoglobin Concent 32, Mean Corpuscular Volume 91, Mean Platelet Volume 10.8H, Monocytes # (Auto) 0.3, Monocytes (%) (Auto) 4, Neutrophils # (Auto) 5.0, Neutrophils (%) (Auto) 88H, Phosphorus Level 4.2, Platelet Count 173, Potassium Level 3.8, Red Blood Count 2.96L, Red Cell Distribution Width 14.9H, Sodium Level 134L, White Blood Count 5.7 11/05/16 06:02: Glucometer 359H 11/05/16 11:31: Glucometer 336H Microbiology 11/04/16 Influenza Types A,B Antigen (EMILIA) - Final, Complete A/P: Assessment/Dx: acute on chronic systolic heart failure, Acute on chronic renal failure, ? Cardiorenal syndrome, Hypotension, Atrial fibrillation Plan: acute on chronic systolic heart failure: patient improved slightly with IV Lasix. I think she still needs IV Lasix. I will continue Zaroxolyn as well as spironolactone. Acute on chronic renal failure, ? Cardiorenal syndrome Hypotension: my concern is that she may be impending cardiogenic shock. Her blood pressure is holding systolic pressure in the 90s, she is tachycardic, her creatinine is worsening. I'm debating whether we should start low-dose inotropic agent. no further Cardizem. Atrial fibrillation: beta blockers. Eliquis 2.5 mg twice a day. I discussed at length with the patient and the family about the critical situation and prognosis of the patient. The patient's family brought up the option of hospice. I've mentioned that the option of hospice and the discussion of palliative care is appropriate in this patient. Allison PETTY MD Nov 05, 2016 3:46 pm
[2016-11-05] MEDS ORDERED: FUROSEMIDE 40 MG/4 ML INJ (LASIX) IVP SCH (21:00)
[2016-11-05] MEDS: inSUlin DETERMIR 1000 UNITS/10 ML VIAL (LEVEMIR) SQ SCH (21:30)
[2016-11-05] MEDS: SIMvastatin 40 MG (ZOCOR) TAB PO SCH (21:36)
[2016-11-05] MEDS: DONEPEZIL 10 MG (ARICEPT) TAB PO SCH (21:37)
[2016-11-05] MEDS: APIXABAN 2.5 MG (ELIQUIS) TABLET PO SCH (21:37)
[2016-11-06] VITALS (23 sets, daily range): BP systolic 81–135; BP diastolic 47–92
[2016-11-06 04:11] LABS: BASOPHILS % (AUTO) 0 % (0-10); EOSINOPHILS % (AUTO) 0 % (0-10); LYMPHOCYTES # (AUTO) 0.8 X 10^3 (1.0-4.0); LYMPHOCYTES % (AUTO) 6 % (12-44); MEAN CORPUSCULAR HEMOGLOBIN 30 PG (25-34); MEAN CORPUSCULAR HGB CONC 33 G/DL (32-36); MEAN CORPUSCULAR VOLUME 90 FL (80-99); MEAN PLATELET VOLUME 10.9 FL (7.4-10.4); MONOCYTES # (AUTO) 0.9 X 10^3 (0.0-1.0); MONOCYTES % (AUTO) 6 % (0-12); NEUTROPHILS # (AUTO) 12.9 X 10^3 (1.8-7.8); NEUTROPHILS % (AUTO) 89 % (42-75); PLATELET COUNT 251 10^3/uL (130-400); RED BLOOD COUNT 3.19 10^6/uL (4.35-5.85); WHITE BLOOD COUNT 14.6 10^3/uL (4.3-11.0)
[2016-11-06 04:37] LABS: CALCIUM 9.1 MG/DL (8.5-10.1); CREATININE SERUM 3.18 MG/DL (0.60-1.30); MAGNESIUM 2.4 MG/DL (1.8-2.4); POTASSIUM 4.5 MMOL/L (3.6-5.0)
[2016-11-06] MEDS: inSUlin (REGULAR) HUMAN 1 UNIT/0.01 ML (CHARGE PER UNIT) SC SCH ×4 (06:00→22:31)
[2016-11-06] MEDS: KCL 20 MEQ TAB (K-DUR) PO SCH (06:00)
[2016-11-06] MEDS: RT-ALBUTEROL SULF 2.5 MG/3 ML PRE-MIX VIAL INH SCH ×3 (06:28→22:39)
[2016-11-06] MEDS: glipiZIDE 5 MG (GLUCOTROL) TAB PO SCH (06:36)
[2016-11-06] MEDS: PANTOPRAZOLE 40 MG (PROTONIX) TAB PO SCH (06:36)
--- NOTE | 2016-11-06 07:17 | Diagnostic Imaging Report ---
EXAMINATION: Chest radiograph, portable AP view. DATE: November 06, 2016, at 0458 hours. INDICATION: 81-year-old female, dyspnea. COMPARISON: November 05, 2016. FINDINGS: There are median sternotomy wires. Stable overall appearance of the cardiomediastinal silhouette. There is no identified pneumothorax. There is bibasilar airspace consolidation. There are predominantly linear opacities in the right and left midlung. There are also streaky bilateral perihilar opacities. Overall appearance of the lungs is unchanged since prior exam. There is an area of calcific attenuation adjacent to the left humeral head which may relate to calcific tendinitis/bursitis. IMPRESSION: Grossly unchanged bilateral perihilar and bibasilar airspace consolidation with probable small bilateral pleural effusions. Dictated by: Dictated on workstation # [id number]
--- NOTE | 2016-11-06 07:48 | Progress Note (SOAP) ---
Subjective Subjective/Events-last exam CHF with hypoxia. Respiratory failure. Diabetes. Renal insufficiency. Patient feels she's not feeling great. Patient not having any distress. White blood cell count went up to 14,700. GFR down to 14. 2 hold Lasix Objective Exam Vital Signs Date Time Temp Pulse Resp B/P Pulse Ox O2 Delivery O2 Flow Rate FiO2 11/06/16 06:32 96 Nasal Cannula 2.00 11/06/16 06:00 111 24 116/80 99 Nasal Cannula 3.00 11/06/16 05:00 104 17 117/83 98 Nasal Cannula 3.00 11/06/16 04:00 98 20 100/64 100 Nasal Cannula 3.00 11/06/16 04:00 95 Room Air 11/06/16 03:00 100 20 112/67 100 Nasal Cannula 3.00 11/06/16 02:00 93 22 116/82 100 Nasal Cannula 3.00 11/06/16 01:00 95 11/06/16 01:00 95 19 93/67 100 Nasal Cannula 3.00 11/06/16 00:00 95 Room Air 11/06/16 00:00 93 20 100/68 100 Nasal Cannula 3.00 11/05/16 23:00 87 20 105/64 100 Nasal Cannula 3.00 11/05/16 22:00 112 13 118/59 99 Nasal Cannula 3.00 11/05/16 21:19 92 Nasal Cannula 2.00 11/05/16 21:00 96 22 103/84 98 Nasal Cannula 3.00 11/05/16 20:00 95 20 114/73 99 Nasal Cannula 3.00 11/05/16 20:00 95 Room Air 11/05/16 19:00 94 19 109/65 97 Nasal Cannula 3.00 11/05/16 19:00 94 11/05/16 18:00 94 20 105/73 100 Nasal Cannula 3.00 11/05/16 17:00 94 20 110/71 100 Nasal Cannula 3.00 11/05/16 16:00 95 21 101/54 91 Nasal Cannula 3.00 11/05/16 16:00 95 Room Air 11/05/16 15:00 95 28 91/64 97 Nasal Cannula 3.00 11/05/16 14:25 96 Room Air 11/05/16 14:07 113 11/05/16 14:00 106/56 94 Nasal Cannula 3.00 11/05/16 13:00 95/69 94 Nasal Cannula 3.00 11/05/16 12:00 95 Nasal Cannula 11/05/16 11:00 86/62 94 Nasal Cannula 3.00 11/05/16 10:00 83/53 Nasal Cannula 3.00 11/05/16 09:00 107 21 89/69 96 Nasal Cannula 3.00 11/05/16 08:00 95 Nasal Cannula 11/05/16 08:00 105 22 89/58 94 Nasal Cannula 3.00 I & O 11/06/16 07:00 Intake Total 525 ml Output Total 800 ml Balance -275 ml Capillary Refill : Greater Than 3 Seconds General Appearance: No Apparent Distress WD/WN HEENT: Normal ENT Inspection Neck: Full Range of Motion Normal Inspection Respiratory: Chest Non Tender No Accessory Muscle Use No Respiratory Distress Cardiovascular: Regular Rate, Rhythm No Murmur Gastrointestinal: non tender soft Results Lab Laboratory Tests 11/06/16 03:51 Laboratory Tests 11/05/16 11:31: Glucometer 336H 11/05/16 15:54: Glucometer 333H 11/05/16 21:29: Glucometer 224H 11/06/16 03:51: Anion Gap 16H, BUN/Creatinine Ratio 26, Basophils # (Auto) 0.0, Basophils (%) ( Auto) 0, Blood Urea Nitrogen 84H, Calcium Level 9.1, Carbon Dioxide Level 27, Chloride Level 91L, Creatinine 3.18H, Eosinophils # (Auto) 0.0, Eosinophils (%) (Auto) 0, Estimat Glomerular Filtration Rate 14, Glucose Level 143H, Hematocrit 29L, Hemoglobin 9.4L, Lymphocytes # (Auto) 0.8L, Lymphocytes (%) (Auto) 6L, Magnesium Level 2.4, Mean Corpuscular Hemoglobin 30, Mean Corpuscular Hemoglobin Concent 33, Mean Corpuscular Volume 90, Mean Platelet Volume 10.9H, Monocytes # (Auto) 0.9, Monocytes (%) (Auto) 6, Neutrophils # (Auto) 12.9H, Neutrophils (%) (Auto) 89H, Platelet Count 251, Potassium Level 4.5, Red Blood Count 3.19L, Red Cell Distribution Width 15.0H, Sodium Level 134L, White Blood Count 14.6H Microbiology 11/04/16 Influenza Types A,B Antigen (EMILIA) - Final, Complete Assessment/Plan Assessment/Plan Assess & Plan/Chief Complaint acute on chronic cardiomyopathy with ejection fraction of 20 percent. Pulmonary edema. Acute on chronic renal failure. Hypoxia. . 11/06/16 acute and chronic cardiomyopathy. Pulmonary edema. Acute and chronic renal failure. GFR loath to decrease insulin White blood cell count 14,000 to evaluate Diagnosis/Problems: Clinical Quality Measures DVT/VTE Risk/Contraindication: Contraindications-Pharm: Other *list below* OLI HAMMER DO Nov 06, 2016 07:48
[2016-11-06] MEDS: CLOPIDOGREL 75 MG (PLAVIX) TABLET PO SCH (08:54)
[2016-11-06] MEDS: MAGNESIUM OXIDE (MAG-OX)400 MG TAB PO SCH ×2 (08:54→22:15)
[2016-11-06] MEDS: SPIRONOLACTONE 25 MG (ALDACTONE) TAB PO SCH (08:54)
[2016-11-06] MEDS: VITAMIN D3 1,000 UNITS (CHOLECALCIFEROL) TABLET PO SCH (08:54)
[2016-11-06] MEDS: CARVEDILOL 3.125 MG (COREG) TABLET PO SCH ×2 (08:54→22:15)
[2016-11-06] MEDS: PYRIDOXINE (VITAMIN B-6) 50 MG TABLET PO SCH (08:54)
[2016-11-06] MEDS: KCL 20 MEQ POWDER FOR ORAL SOLUTION PO SCH ×2 (08:55→22:16)
[2016-11-06] MEDS: ASPIRIN E.C. 81 MG (ECOTRIN) TAB PO SCH (08:55)
[2016-11-06] MEDS: APIXABAN 2.5 MG (ELIQUIS) TABLET PO SCH ×2 (08:55→22:16)
[2016-11-06] MEDS: METOLAZONE 2.5 MG (ZAROXOLYN) TAB PO SCH (08:58)
[2016-11-06] MEDS ORDERED: FUROSEMIDE 40 MG/4 ML INJ (LASIX) IVP SCH (09:00)
[2016-11-06] MEDS ORDERED: APIXABAN 2.5 MG (ELIQUIS) TABLET PO SCH (09:00)
[2016-11-06] MEDS ORDERED: FUROSEMIDE 40 MG (LASIX) TAB PO SCH (09:00)
[2016-11-06 09:12] LABS: KETONES,URINE NEGATIVE (NEGATIVE); LEUKOCYTE ESTERASE ,URINE 3+ (NEGATIVE); NITRITE,URINE POSITIVE (NEGATIVE); PH,URINE 5 (5-9); PROTEIN,URINE 3+ (NEGATIVE); UROBILINOGEN,URINE 1 MG/DL (NORMAL)
[2016-11-06 09:28] LABS: BILIRUBIN,URINE 1+ (NEGATIVE); WBC,URINE >100 /HPF
[2016-11-06 09:29] LABS: SQUAMOUS EPITHELIAL CELL,UR 25-50 /HPF
[2016-11-06] MEDS ORDERED: cefTRIAXone INJECTION 1,000 MG in NORMAL SALINE (BAXTER MINI) 50 ML IV SCH (10:30)
[2016-11-06] MEDS ORDERED: cefTRIAXone 1 GM (ROCEPHIN) VIAL ONE (11:02)
[2016-11-06] MEDS ORDERED: NORMAL SALINE (BAXTER MINI) 50 ML IV ONE (11:04)
--- NOTE | 2016-11-06 13:14 | Cardiology Progress Note ---
Cardiology SOAP Progress Note Subjective: Patient says she is not feeling well. Shortness of breath Objective: I&O/Vital Signs Vital Sign - Last 12Hours 11/06/16 11/06/16 11/06/16 11/06/16 02:00 03:00 04:00 04:00 Pulse 93 100 98 Resp 22 20 20 B/P 116/82 112/67 100/64 Pulse Ox 100 100 95 100 O2 Delivery Nasal Cannula Nasal Cannula Room Air Nasal Cannula O2 Flow Rate 3.00 3.00 3.00 11/06/16 11/06/16 11/06/16 11/06/16 05:00 06:00 06:32 07:00 Pulse 104 111 112 Resp 17 24 B/P 117/83 116/80 Pulse Ox 98 99 96 O2 Delivery Nasal Cannula Nasal Cannula Nasal Cannula O2 Flow Rate 3.00 3.00 2.00 11/06/16 11/06/16 11/06/16 11/06/16 07:00 08:00 08:00 09:00 Pulse 106 107 116 Resp 21 21 21 B/P 110/75 107/74 Pulse Ox 93 8 93 97 O2 Delivery Nasal Cannula Nasal Cannula Nasal Cannula Nasal Cannula O2 Flow Rate 1.00 2.00 1.00 1.00 11/06/16 11/06/16 11/06/16 10:00 11:00 12:05 Pulse 112 101 Resp 22 24 B/P 110/92 104/69 Pulse Ox 93 97 8 O2 Delivery Nasal Cannula Nasal Cannula Nasal Cannula O2 Flow Rate 1.00 1.00 2.00 Intake and Output 11/06/16 00:00 Intake Total 475 ml Output Total 550 ml Balance -75 ml Weight (Pounds): 178 Weight (Ounces): 5.0 Weight (Calculated Kilograms): [id number] Constitutional: No appears stated age, No AAO x 3, No apparent distress, No PERRL, No well-developed, No well-nourished, No other Respiratory: rhonchi Cardiovascular: No regular rate-rhythm, No irregularly irregular, No extra beats, No parasternal heave is noted, No JVD, No edema, No bradycardia, No tachycardia, No point of maximal impulse, No cardiac thrills are palpable, No S1 and S2, No gallop/S3, No gallop/S4, No diastolic murmur, No systolic murmur, No friction rub, No click, No other Gastrointestional: No tender, No soft, No round, No distended, No pulsatile mass, No organomegaly, No guarding, No rebound, No tenderness, No hernia, No mass, No audible bowel sounds, No abnormal bowel sounds, No abdominal bruits, No spleenomegaly, No other Extremities: No normal range of motion, No non-tender, No normal inspection, No pedal edema, No calf tenderness, No normal capillary refill, No pelvis stable , No calf tenderness, No inflammation, No pedal edema, No slow capillary refill , No swelling, No other, No abrasion, No clubbing, No cyanosis, No ecchymosis, No laceration, No no lower extremity edema bilateral, No significant edema, No tenderness, No wound Neurologic/Psychiatric: No coverer II-XII nml as tested, No no motor/sensory deficits, No alert, No normal mood/affect, No oriented x 3, No abnormal cerebellar tests, No abnormal coverer II-XII, No abnormal gait, No aphasia, No EOM palsy, No facial droop, No motor weakness, No sensory deficit, No depressed affect, No disoriented x 3, No other, No grossly intact, No power is 5/5 both on sides Skin: No normal color, No warm/dry, No cyanosis, No cool, No diaphoresis, No damp, No ecchymosis, No jaundice, No mottled, No pallor, No rash, No tattoos/ piercings, No ulcerations, No rash on exposed areas, No ulcerations on exposed areas, No other Results/Procedures: Labs Laboratory Tests 11/05/16 15:54: Glucometer 333H 11/05/16 21:29: Glucometer 224H 11/06/16 03:51: Anion Gap 16H, B-Type Natriuretic Peptide 1033.3H, BUN/Creatinine Ratio 26, Basophils # (Auto) 0.0, Basophils (%) (Auto) 0, Blood Urea Nitrogen 84H, Calcium Level 9.1, Carbon Dioxide Level 27, Chloride Level 91L, Creatinine 3.18H , Eosinophils # (Auto) 0.0, Eosinophils (%) (Auto) 0, Estimat Glomerular Filtration Rate 14, Glucose Level 143H, Hematocrit 29L, Hemoglobin 9.4L, Lymphocytes # (Auto) 0.8L, Lymphocytes (%) (Auto) 6L, Magnesium Level 2.4, Mean Corpuscular Hemoglobin 30, Mean Corpuscular Hemoglobin Concent 33, Mean Corpuscular Volume 90, Mean Platelet Volume 10.9H, Monocytes # (Auto) 0.9, Monocytes (%) (Auto) 6, Neutrophils # (Auto) 12.9H, Neutrophils (%) (Auto) 89H, Platelet Count 251, Potassium Level 4.5, Red Blood Count 3.19L, Red Cell Distribution Width 15.0H, Sodium Level 134L, White Blood Count 14.6H 11/06/16 08:25: Lactic Acid Level 1.0 11/06/16 09:00: Urine Bacteria MODERATEH, Urine Bilirubin 1+H, Urine Casts NONE, Urine Clarity VERY CLOUDYH, Urine Color BROWNH, Urine Crystals NONE, Urine Culture Indicated YES, Urine Glucose (UA) NEGATIVE, Urine Ketones NEGATIVE, Urine Leukocyte Esterase 3+H, Urine Mucus NEGATIVE, Urine Nitrite POSITIVEH, Urine Protein 3+H, Urine RBC TNTCH, Urine RBC (Auto) 5+H, Urine Specific [place] 1.020, Urine Squamous Epithelial Cells 25-50H, Urine Urobilinogen 1, Urine WBC >100H, Urine pH 5 11/06/16 11:06: Glucometer 244H Microbiology 11/04/16 Influenza Types A,B Antigen (EMILIA) - Final, Complete A/P: Assessment/Dx: acute on chronic systolic heart failure, Acute on chronic renal failure, ? Cardiorenal syndrome, Hypotension, Atrial fibrillation Plan: acute on chronic systolic heart failure: patient improved slightly with IV Lasix. I think she still needs IV Lasix but agree to hold it because of worsening renal function. However, I believe worsening renal function is secondary to cardiorenal syndrome rather than intravascular dehydration. Continue to follow renal function post milrinone.. Acute on chronic renal failure, ? Cardiorenal syndrome Hypotension: my concern is that she may be impending cardiogenic shock. Her blood pressure is holding systolic pressure in the 90s, she is tachycardic, her creatinine is worsening. Start low-dose milrinone infusion. Atrial fibrillation: beta blockers. Eliquis 2.5 mg twice a day. Poor prognosis. I discussed at length the prognosis yesterday with the patient and family. Allison PETTY MD Nov 06, 2016 1:14 pm
[2016-11-06] MEDS ORDERED: DOBUTamine DRIP 250 ML IV ONE (13:20)
[2016-11-06] MEDS: DOBUTamine DRIP 250 ML IV SCH ×2 (14:15→23:09)
[2016-11-06] MEDS ORDERED: FAMOTIDINE 20 MG (PEPCID) TABLET PO PRN (15:10)
[2016-11-06] MEDS: SIMvastatin 40 MG (ZOCOR) TAB PO SCH (22:15)
[2016-11-06] MEDS: DONEPEZIL 10 MG (ARICEPT) TAB PO SCH (22:16)
[2016-11-06] MEDS ORDERED: inSUlin DETERMIR 1 UNIT/0.01 ML (LEVEMIR) CHARGE PER UNIT SQ ONE (22:37)
[2016-11-06] MEDS: inSUlin DETERMIR 1000 UNITS/10 ML VIAL (LEVEMIR) SQ SCH (23:05)
[2016-11-07] VITALS (12 sets, daily range): BP systolic 80–133; BP diastolic 59–88
[2016-11-07 02:06] LABS: ABG BASE EXCESS 7.7 MMOL/L (-2.5-2.5); ABG HCO3 33 MMOL/L (23-27); ABG OXYGEN SATURATION 95 % (94-100); ABG PCO2 47 MMHG (35-45); ABG PH 7.46 (7.37-7.43); ABG PO2 62 MMHG (79-93); ABG TCO2 34.4 MMOL/L (21.0-31.0); ALLENS TEST YES-POS
[2016-11-07 02:07] LABS: PATIENT TEMP 96.1
[2016-11-07 03:33] LABS: ABG BASE EXCESS 6.9 MMOL/L (-2.5-2.5); ABG HCO3 32 MMOL/L (23-27); ABG OXYGEN SATURATION 86 % (94-100); ABG PCO2 46 MMHG (35-45); ABG PH 7.46 (7.37-7.43); ABG PO2 50 MMHG (79-93); ABG TCO2 33.5 MMOL/L (21.0-31.0)
[2016-11-07 03:34] LABS: ALLENS TEST YES-POS; PATIENT TEMP 95.9
[2016-11-07 04:28] LABS: BASOPHILS % (AUTO) 0 % (0-10); EOSINOPHILS % (AUTO) 0 % (0-10); LYMPHOCYTES # (AUTO) 1.1 X 10^3 (1.0-4.0); LYMPHOCYTES % (AUTO) 10 % (12-44); MEAN CORPUSCULAR HEMOGLOBIN 29 PG (25-34); MEAN CORPUSCULAR HGB CONC 32 G/DL (32-36); MEAN CORPUSCULAR VOLUME 91 FL (80-99); MEAN PLATELET VOLUME 10.7 FL (7.4-10.4); MONOCYTES # (AUTO) 0.9 X 10^3 (0.0-1.0); MONOCYTES % (AUTO) 8 % (0-12); NEUTROPHILS % (AUTO) 82 % (42-75); PLATELET COUNT 198 10^3/uL (130-400); RED BLOOD COUNT 3.06 10^6/uL (4.35-5.85)
[2016-11-07 05:00] LABS: ALBUMIN 3.4 G/DL (3.2-4.5); BILIRUBIN,TOTAL 0.8 MG/DL (0.1-1.0); CALCIUM 8.8 MG/DL (8.5-10.1); CREATININE SERUM 3.39 MG/DL (0.60-1.30); MAGNESIUM 2.6 MG/DL (1.8-2.4); TOTAL PROTEIN 5.7 G/DL (6.4-8.2)
[2016-11-07] MEDS: inSUlin (REGULAR) HUMAN 1 UNIT/0.01 ML (CHARGE PER UNIT) SC SCH ×2 (06:00→11:00)
[2016-11-07] MEDS: KCL 20 MEQ TAB (K-DUR) PO SCH (06:00)
[2016-11-07] MEDS: glipiZIDE 5 MG (GLUCOTROL) TAB PO SCH (06:42)
[2016-11-07] MEDS: PANTOPRAZOLE 40 MG (PROTONIX) TAB PO SCH (06:42)
[2016-11-07] MEDS: RT-ALBUTEROL SULF 2.5 MG/3 ML PRE-MIX VIAL INH SCH (06:43)
--- NOTE | 2016-11-07 07:04 | Pulmonary Progress Note ---
Subjective Subjective/Events-last exam late entry for 11/06/16 today is 11/07/16 Pt states she feels worse. Exam Exam Vital Signs Date Time Temp Pulse Resp B/P Pulse Ox O2 Delivery O2 Flow Rate FiO2 11/07/16 06:43 104 16 93 2.00 11/07/16 05:00 110 17 128/82 97 NIV/Bilevel 30.00 11/07/16 04:00 107 15 129/72 95 NIV/Bilevel 30.00 11/07/16 04:00 Nasal Cannula 4.00 11/07/16 03:00 110 16 128/88 97 NIV/Bilevel 30.00 11/07/16 02:00 96.9 109 25 113/73 95 NIV/Bilevel 30.00 11/07/16 01:40 108 19 96 4.00 11/07/16 01:00 120 30 80/59 96 Nasal Cannula 4.00 11/07/16 01:00 121 11/07/16 00:00 Nasal Cannula 4.00 11/06/16 23:09 92/58 11/06/16 23:00 111 24 100/73 97 Room Air 11/06/16 22:40 96 Nasal Cannula 1.00 11/06/16 22:00 109 18 90/62 97 Room Air 11/06/16 21:00 105 21 119/71 97 Room Air 11/06/16 20:00 98 Nasal Cannula 2.00 11/06/16 20:00 117 20 135/74 96 Room Air 11/06/16 19:00 104 19 132/72 96 Room Air 11/06/16 19:00 114 11/06/16 18:00 121 27 105/86 90 Room Air 11/06/16 17:00 109 22 121/86 91 Room Air 11/06/16 16:43 97.2 11/06/16 16:43 8 Nasal Cannula 2.00 11/06/16 16:00 117 25 134/79 96 Nasal Cannula 1.00 11/06/16 15:00 96 18 126/77 98 Nasal Cannula 1.00 11/06/16 14:56 96 Nasal Cannula 2.00 11/06/16 14:00 112 22 121/77 98 Nasal Cannula 1.00 11/06/16 13:32 96 126/72 11/06/16 13:00 108 22 126/72 100 Nasal Cannula 1.00 11/06/16 13:00 96 11/06/16 12:05 8 Nasal Cannula 2.00 11/06/16 12:00 108 21 111/89 100 Nasal Cannula 1.00 11/06/16 11:00 101 24 104/69 97 Nasal Cannula 1.00 11/06/16 10:00 112 22 110/92 93 Nasal Cannula 1.00 11/06/16 09:00 116 21 97 Nasal Cannula 1.00 11/06/16 08:00 107 21 107/74 93 Nasal Cannula 1.00 11/06/16 08:00 8 Nasal Cannula 2.00 11/06/16 08:00 97.2 I & O 11/07/16 07:00 Intake Total 996 ml Output Total 715 ml Balance 281 ml General Appearance: No Apparent Distress WD/WN HEENT: Normal ENT Inspection Neck: Full Range of Motion Normal Inspection Respiratory: Chest Non Tender No Accessory Muscle Use No Respiratory Distress Cardiovascular: Regular Rate, Rhythm No Murmur Capillary Refill: Greater Than 3 Seconds Gastrointestinal: non tender soft Results Lab Laboratory Tests 11/06/16 03:51 11/07/16 03:27 Assessment/Plan Assessment/Plan Acute on chronic cardiomyopathy with EF of 20 -lasix -- d/c'd -cardiology following Pulmonary edema Acute on chronic renal failure Hypoxia -oxygen PRN for Sp02 90-95% transfer to [facility] when ok with cardiology. Pts overall prognosis is poor. Clinical Quality Measures DVT/VTE Risk/Contraindication: Contraindications-Pharm: Other *list below* LINNEA SMALLS DO Nov 07, 2016 07:04
--- NOTE | 2016-11-07 07:10 | Pulmonary Progress Note ---
Subjective Subjective/Events-last exam PT is worse today. She is now requiring BiPAP secondary to respiratory distress last night. Exam Exam Vital Signs Date Time Temp Pulse Resp B/P Pulse Ox O2 Delivery O2 Flow Rate FiO2 11/07/16 06:43 104 16 93 2.00 11/07/16 05:00 110 17 128/82 97 NIV/Bilevel 30.00 11/07/16 04:00 107 15 129/72 95 NIV/Bilevel 30.00 11/07/16 04:00 Nasal Cannula 4.00 11/07/16 03:00 110 16 128/88 97 NIV/Bilevel 30.00 11/07/16 02:00 96.9 109 25 113/73 95 NIV/Bilevel 30.00 11/07/16 01:40 108 19 96 4.00 11/07/16 01:00 120 30 80/59 96 Nasal Cannula 4.00 11/07/16 01:00 121 11/07/16 00:00 Nasal Cannula 4.00 11/06/16 23:09 92/58 11/06/16 23:00 111 24 100/73 97 Room Air 11/06/16 22:40 96 Nasal Cannula 1.00 11/06/16 22:00 109 18 90/62 97 Room Air 11/06/16 21:00 105 21 119/71 97 Room Air 11/06/16 20:00 98 Nasal Cannula 2.00 11/06/16 20:00 117 20 135/74 96 Room Air 11/06/16 19:00 104 19 132/72 96 Room Air 11/06/16 19:00 114 11/06/16 18:00 121 27 105/86 90 Room Air 11/06/16 17:00 109 22 121/86 91 Room Air 11/06/16 16:43 97.2 11/06/16 16:43 8 Nasal Cannula 2.00 11/06/16 16:00 117 25 134/79 96 Nasal Cannula 1.00 11/06/16 15:00 96 18 126/77 98 Nasal Cannula 1.00 11/06/16 14:56 96 Nasal Cannula 2.00 11/06/16 14:00 112 22 121/77 98 Nasal Cannula 1.00 11/06/16 13:32 96 126/72 11/06/16 13:00 108 22 126/72 100 Nasal Cannula 1.00 11/06/16 13:00 96 11/06/16 12:05 8 Nasal Cannula 2.00 11/06/16 12:00 108 21 111/89 100 Nasal Cannula 1.00 11/06/16 11:00 101 24 104/69 97 Nasal Cannula 1.00 11/06/16 10:00 112 22 110/92 93 Nasal Cannula 1.00 11/06/16 09:00 116 21 97 Nasal Cannula 1.00 11/06/16 08:00 107 21 107/74 93 Nasal Cannula 1.00 11/06/16 08:00 8 Nasal Cannula 2.00 11/06/16 08:00 97.2 I & O 11/07/16 07:00 Intake Total 996 ml Output Total 715 ml Balance 281 ml General Appearance: No Apparent Distress WD/WN HEENT: Normal ENT Inspection Neck: Full Range of Motion Normal Inspection Respiratory: Chest Non Tender No Accessory Muscle Use No Respiratory Distress Cardiovascular: Regular Rate, Rhythm No Murmur Capillary Refill: Greater Than 3 Seconds Gastrointestinal: non tender soft Results Lab Laboratory Tests 11/06/16 03:51 11/07/16 03:27 Assessment/Plan Assessment/Plan Acute on chronic cardiomyopathy with EF of 20 -lasix -- Restart secondary to respiratory distress that started after holding lasix -cardiology following Pulmonary edema Acute on chronic renal failure -Monitor Hypoxia -oxygen PRN for Sp02 90-95% transfer to [facility] when ok with cardiology. Pts overall prognosis is very poor. Pt is now Comfort care only. I am going to sign off. Clinical Quality Measures DVT/VTE Risk/Contraindication: Contraindications-Pharm: Other *list below* LINNEA SMALLS DO Nov 07, 2016 07:10
[2016-11-07] MEDS: FUROSEMIDE 40 MG/4 ML INJ (LASIX) IVP SCH ×2 (07:27→22:12)
--- NOTE | 2016-11-07 08:55 | Diagnostic Imaging Report ---
INDICATION: Congestive heart failure. COMPARISON: 11/06/2016. FINDINGS: Fractured and displaced sternal wire fragments are unchanged in their projection. Cardiomegaly, bilateral effusions, perihilar edema, and central congestion are unchanged. IMPRESSION: The failure pattern and displaced sternal wire fragments are unchanged. Dictated by: Dictated on workstation # [id number]
--- NOTE | 2016-11-07 10:04 | Physical Therapy Progress Note ---
Therapy Progress Note Patient has had a decline in medical status and is currently on Bipap secondary to respiratory distress. Per Dr. White, patient is on hold until further notice. RENETTA PIZARRO PT Nov 07, 2016 10:04
--- NOTE | 2016-11-07 10:09 | Occ Therapy Progress Note ---
Therapy Progress Note Per PT-Patient has had a decline in medical status and is currently on Bipap secondary to respiratory distress. Per Dr. White, patient is on hold until further notice. KAELYN MASON Nov 07, 2016 10:09
[2016-11-07] MEDS ORDERED: cefTRIAXone 1 GM (ROCEPHIN) VIAL ONE (10:26)
[2016-11-07] MEDS ORDERED: NORMAL SALINE (BAXTER MINI) 50 ML IV ONE (10:27)
[2016-11-07] MEDS: MAGNESIUM OXIDE (MAG-OX)400 MG TAB PO SCH (10:29)
[2016-11-07] MEDS: PYRIDOXINE (VITAMIN B-6) 50 MG TABLET PO SCH (10:29)
[2016-11-07] MEDS: CARVEDILOL 3.125 MG (COREG) TABLET PO SCH (10:29)
[2016-11-07] MEDS: METOLAZONE 2.5 MG (ZAROXOLYN) TAB PO SCH (10:29)
--- NOTE | 2016-11-07 10:29 | Progress Note (SOAP) ---
Subjective Subjective/Events-last exam PT IS AN 81 Y/O FEMALE WHO IS KNOWN TO ME FROM PREVIOUS HOSPITALIZATIONS AND THE CLINIC. SHE PRESENTED TO THE HOSPITAL WITH ACUTE DYSPNEA, AND HAS BEEN PROGRESSIVELY DECLINING. THE PATIENT'S FAMILY/DPOA - HAD A DISCUSSION WITH THE BUSINESS DEVELOPMENT SALES EXECUTIVE/STAFF SONOGRAPHER AND THEY BOTH RECOMMENDED PT TO BE ON HOSPICE/ COMFORT CARE. THE PATIENT'S DPOA - ARASH - WAS CALLED TODAY BY MYSELF AND WAS INFORMED OF MY DISCUSSION WITH THE PATIENT - GERDA INDICATED THAT SHE DESIRES TO BE MADE COMFORTABLE AND ALLOWED TO PASS NATURALLY. Review of Systems General: Fatigue Malaise Pulmonary: DyspneaNo Cough Cardiovascular: : EdemaNo: Chest Pain, Palpitations Gastrointestinal: No: Abdominal Pain, Nausea Neurological: : Weakness Objective Exam Vital Signs Date Time Temp Pulse Resp B/P Pulse Ox O2 Delivery O2 Flow Rate FiO2 11/07/16 09:59 101 17 96 1.00 11/07/16 09:00 96.0 11/07/16 09:00 93 12 115/76 97 NIV/Bilevel 30.00 11/07/16 08:49 106 13 97 2.00 11/07/16 08:00 111 13 111/75 97 NIV/Bilevel 30.00 11/07/16 07:00 114 11/07/16 07:00 108 15 133/82 96 NIV/Bilevel 30.00 11/07/16 06:43 104 16 93 2.00 11/07/16 05:00 110 17 128/82 97 NIV/Bilevel 30.00 11/07/16 04:00 107 15 129/72 95 NIV/Bilevel 30.00 11/07/16 04:00 Nasal Cannula 4.00 11/07/16 03:00 110 16 128/88 97 NIV/Bilevel 30.00 11/07/16 02:00 96.9 109 25 113/73 95 NIV/Bilevel 30.00 11/07/16 01:40 108 19 96 4.00 11/07/16 01:00 120 30 80/59 96 Nasal Cannula 4.00 11/07/16 01:00 121 11/07/16 00:00 Nasal Cannula 4.00 11/06/16 23:09 92/58 11/06/16 23:00 111 24 100/73 97 Room Air 11/06/16 22:40 96 Nasal Cannula 1.00 11/06/16 22:00 109 18 90/62 97 Room Air 11/06/16 21:00 105 21 119/71 97 Room Air 11/06/16 20:00 98 Nasal Cannula 2.00 11/06/16 20:00 117 20 135/74 96 Room Air 11/06/16 19:00 104 19 132/72 96 Room Air 11/06/16 19:00 114 11/06/16 18:00 121 27 105/86 90 Room Air 11/06/16 17:00 109 22 121/86 91 Room Air 11/06/16 16:43 97.2 11/06/16 16:43 8 Nasal Cannula 2.00 11/06/16 16:00 117 25 134/79 96 Nasal Cannula 1.00 11/06/16 15:00 96 18 126/77 98 Nasal Cannula 1.00 11/06/16 14:56 96 Nasal Cannula 2.00 11/06/16 14:00 112 22 121/77 98 Nasal Cannula 1.00 11/06/16 13:32 96 126/72 11/06/16 13:00 108 22 126/72 100 Nasal Cannula 1.00 11/06/16 13:00 96 11/06/16 12:05 8 Nasal Cannula 2.00 11/06/16 12:00 108 21 111/89 100 Nasal Cannula 1.00 11/06/16 11:00 101 24 104/69 97 Nasal Cannula 1.00 I & O 11/07/16 07:00 Intake Total 996 ml Output Total 715 ml Balance 281 ml Capillary Refill : Greater Than 3 Seconds General Appearance: Moderate Distress (ON BIPAP - PT STATES - I NEED MORE OXYGEN) HEENT: PERRL/EOMI Neck: Supple Respiratory: Chest Non Tender Decreased Breath Sounds (THROUGHOUT) Cardiovascular: Regular Rate, Rhythm Gastrointestinal: normal bowel sounds non tender soft no organomegaly no pulsatile mass Extremity: Pedal Edema Neurologic/Psychiatric: Alert Other (ORIENTED TO PERSON AND PLACE) Skin: Warm/Dry Lymphatic: No Adenopathy Results Lab Laboratory Tests 11/06/16 11:06: Glucometer 244H 11/06/16 16:48: Glucometer 245H 11/06/16 22:08: Glucometer 172H 11/07/16 01:58: Blane Test YES-POS, Arterial Blood Base Excess 7.7H, Arterial Blood HCO3 33H, Arterial Blood Oxygen Saturation 95, Arterial Blood Partial Pressure CO2 47H, Arterial Blood Partial Pressure O2 62L, Arterial Blood Total CO2 34.4H, Arterial Blood pH 7.46H, Blood Gas Inspired Oxygen 30%, Blood Gas Patient Temperature 96.1, Blood Gas Puncture Site LEFT RADIAL, Blood Gas Ventilator Setting NO 11/07/16 03:25: Blane Test YES-POS, Arterial Blood Base Excess 6.9H, Arterial Blood HCO3 32H, Arterial Blood Oxygen Saturation 86L, Arterial Blood Partial Pressure CO2 46H, Arterial Blood Partial Pressure O2 50L, Arterial Blood Total CO2 33.5H, Arterial Blood pH 7.46H, Blood Gas Inspired Oxygen 4L, Blood Gas Patient Temperature 95.9, Blood Gas Puncture Site LEFT RADIAL, Blood Gas Ventilator Setting NO 11/07/16 03:27: Alanine Aminotransferase (ALT/SGPT) 23, Albumin 3.4, Alkaline Phosphatase 68, Anion Gap 15H, Aspartate Amino Transf (AST/SGOT) 23, BUN/Creatinine Ratio 28, Basophils # (Auto) 0.0, Basophils (%) (Auto) 0, Blood Urea Nitrogen 94H, Calcium Level 8.8, Carbon Dioxide Level 29, Chloride Level 90L, Creatinine 3.39H , Eosinophils # (Auto) 0.0, Eosinophils (%) (Auto) 0, Estimat Glomerular Filtration Rate 13, Glucose Level 134H, Hematocrit 28L, Hemoglobin 9.0L, Lymphocytes # (Auto) 1.1, Lymphocytes (%) (Auto) 10L, Magnesium Level 2.6H, Mean Corpuscular Hemoglobin 29, Mean Corpuscular Hemoglobin Concent 32, Mean Corpuscular Volume 91, Mean Platelet Volume 10.7H, Monocytes # (Auto) 0.9, Monocytes (%) (Auto) 8, Neutrophils # (Auto) 9.0H, Neutrophils (%) (Auto) 82H, Platelet Count 198, Potassium Level 4.0, Red Blood Count 3.06L, Red Cell Distribution Width 15.0H, Sodium Level 134L, Total Bilirubin 0.8, Total Protein 5.7L, White Blood Count 11.0 11/07/16 06:40: Glucometer 120H Microbiology 11/04/16 Influenza Types A,B Antigen (EMILIA) - Final, Complete 11/06/16 Urine Culture - Preliminary, Resulted Probable Enterococcus Species Assessment/Plan Assessment/Plan Assess & Plan/Chief Complaint CARDIOGENIC RENAL FAILURE ACUTE ON CHRONIC SYSTOLIC CONGESTIVE HEART FAILURE HYPERTENSION COPD PT AND FAMILY DESIRE PT TO BE MADE COMFORT CARE. I HAVE DISCUSSED THIS WITH THE PATIENT IN DETAIL AND HER DPOA - ARASH IN DETAIL. WE WILL KEEP GERDA ON BIPAP THIS IS IMPROVING HER COMFORT. ONCE HER SYMPTOMS PROGRESS - WE WILL STOP THE BIPAP IT WILL NO LONGER BE PROVIDING COMFORT AND PATIENT WILL NEED TO CONTINUE WITH PRN MORPHINE AND PRN ATIVAN FOR COMFORT MEASURES. STOP OTHER MEDICATIONS NOT RELATED TO HER COMFORT. Diagnosis/Problems: Clinical Quality Measures DVT/VTE Risk/Contraindication: Contraindications-Pharm: Other *list below* ELKIN THORPE MD Nov 07, 2016 10:29
[2016-11-07] MEDS ORDERED: BISACODYL 10 MG SUPP (DULCOLAX) PR PRN (10:30)
[2016-11-07] MEDS ORDERED: RT-ALBUTEROL/IPRATROPIUM 3 ML (DUONEB) VIAL INH PRN (10:30)
[2016-11-07] MEDS ORDERED: GLYCOPYRROLATE 0.2 MG/ML (ROBINUL) 2 ML VIAL IV PRN (10:30)
[2016-11-07] MEDS ORDERED: PROMETHAZINE INJ 25 MG/ML (PHENERGAN) AMP IVP PRN (10:30)
[2016-11-07] MEDS ORDERED: ACETAMINOPHEN 650 MG SUPP (TYLENOL) PR PRN (10:30)
[2016-11-07] MEDS: KCL 20 MEQ POWDER FOR ORAL SOLUTION PO SCH (10:30)
[2016-11-07] MEDS: APIXABAN 2.5 MG (ELIQUIS) TABLET PO SCH ×2 (10:30→22:12)
[2016-11-07] MEDS ORDERED: ONDANSETRON 4 MG/2 ML (SDV) Z0FRAN IVP PRN (10:30)
[2016-11-07] MEDS ORDERED: SALIVA STIMULANT MOUTH SPRAY (BIOTENE) 1.5 OZ MM PRN (10:30)
[2016-11-07] MEDS ORDERED: ARTIFICAL TEARS 0.4 ML UNIT DOSE (REFRESH PLUS) OU PRN (10:30)
[2016-11-07] MEDS: LORazepam INJ 2 MG/ML (ATIVAN) VIAL IVP PRN ×2 (11:41→20:26)
[2016-11-07] MEDS: morphine INJ 4 MG/ML 1 ML (VIAL/SYRINGE) IV PRN ×2 (12:22→22:21)
--- NOTE | 2016-11-07 13:44 | Cardiology Progress Note ---
Cardiology SOAP Progress Note Subjective: shortness of breath Objective: I&O/Vital Signs Vital Sign - Last 12Hours 11/07/16 11/07/16 11/07/16 11/07/16 08:49 09:00 09:00 09:59 Temp 96.0 Pulse 106 93 101 Resp 13 12 17 B/P 115/76 Pulse Ox 97 97 96 O2 Delivery NIV/Bilevel O2 Flow Rate 2.00 30.00 1.00 11/07/16 11/07/16 11/07/16 11/07/16 10:30 11:40 12:00 15:15 Temp 93.6 Pulse Ox 100 O2 Delivery Nasal Cannula Nasal Cannula Nasal Cannula Nasal Cannula O2 Flow Rate 3.00 3.00 3.00 2.00 Intake and Output 11/07/16 00:00 Intake Total 220 ml Output Total 225 ml Balance -5 ml Weight (Pounds): 183 Weight (Ounces): 5.0 Weight (Calculated Kilograms): 83.259009 Constitutional: No appears stated age, No AAO x 3, No apparent distress, No PERRL, No well-developed, No well-nourished, No other Respiratory: rhonchi Cardiovascular: No regular rate-rhythm, No irregularly irregular, No extra beats, No parasternal heave is noted, No JVD, No edema, No bradycardia, No tachycardia, No point of maximal impulse, No cardiac thrills are palpable, No S1 and S2, No gallop/S3, No gallop/S4, No diastolic murmur, No systolic murmur, No friction rub, No click, No other Gastrointestional: No tender, No soft, No round, No distended, No pulsatile mass, No organomegaly, No guarding, No rebound, No tenderness, No hernia, No mass, No audible bowel sounds, No abnormal bowel sounds, No abdominal bruits, No spleenomegaly, No other Extremities: No normal range of motion, No non-tender, No normal inspection, No pedal edema, No calf tenderness, No normal capillary refill, No pelvis stable , No calf tenderness, No inflammation, No pedal edema, No slow capillary refill , No swelling, No other, No abrasion, No clubbing, No cyanosis, No ecchymosis, No laceration, No no lower extremity edema bilateral, No significant edema, No tenderness, No wound Neurologic/Psychiatric: No account services analyst II-XII nml as tested, No no motor/sensory deficits, No alert, No normal mood/affect, No oriented x 3, No abnormal cerebellar tests, No abnormal account services analyst II-XII, No abnormal gait, No aphasia, No EOM palsy, No facial droop, No motor weakness, No sensory deficit, No depressed affect, No disoriented x 3, No other, No grossly intact, No power is 5/5 both on sides Skin: No normal color, No warm/dry, No cyanosis, No cool, No diaphoresis, No damp, No ecchymosis, No jaundice, No mottled, No pallor, No rash, No tattoos/ piercings, No ulcerations, No rash on exposed areas, No ulcerations on exposed areas, No other Results/Procedures: Labs Laboratory Tests 11/06/16 22:08: Glucometer 172H 11/07/16 01:58: Blane Test YES-POS, Arterial Blood Base Excess 7.7H, Arterial Blood HCO3 33H, Arterial Blood Oxygen Saturation 95, Arterial Blood Partial Pressure CO2 47H, Arterial Blood Partial Pressure O2 62L, Arterial Blood Total CO2 34.4H, Arterial Blood pH 7.46H, Blood Gas Inspired Oxygen 30%, Blood Gas Patient Temperature 96.1, Blood Gas Puncture Site LEFT RADIAL, Blood Gas Ventilator Setting NO 11/07/16 03:25: Blane Test YES-POS, Arterial Blood Base Excess 6.9H, Arterial Blood HCO3 32H, Arterial Blood Oxygen Saturation 86L, Arterial Blood Partial Pressure CO2 46H, Arterial Blood Partial Pressure O2 50L, Arterial Blood Total CO2 33.5H, Arterial Blood pH 7.46H, Blood Gas Inspired Oxygen 4L, Blood Gas Patient Temperature 95.9, Blood Gas Puncture Site LEFT RADIAL, Blood Gas Ventilator Setting NO 11/07/16 03:27: Alanine Aminotransferase (ALT/SGPT) 23, Albumin 3.4, Alkaline Phosphatase 68, Anion Gap 15H, Aspartate Amino Transf (AST/SGOT) 23, BUN/Creatinine Ratio 28, Basophils # (Auto) 0.0, Basophils (%) (Auto) 0, Blood Urea Nitrogen 94H, Calcium Level 8.8, Carbon Dioxide Level 29, Chloride Level 90L, Creatinine 3.39H , Eosinophils # (Auto) 0.0, Eosinophils (%) (Auto) 0, Estimat Glomerular Filtration Rate 13, Glucose Level 134H, Hematocrit 28L, Hemoglobin 9.0L, Lymphocytes # (Auto) 1.1, Lymphocytes (%) (Auto) 10L, Magnesium Level 2.6H, Mean Corpuscular Hemoglobin 29, Mean Corpuscular Hemoglobin Concent 32, Mean Corpuscular Volume 91, Mean Platelet Volume 10.7H, Monocytes # (Auto) 0.9, Monocytes (%) (Auto) 8, Neutrophils # (Auto) 9.0H, Neutrophils (%) (Auto) 82H, Platelet Count 198, Potassium Level 4.0, Red Blood Count 3.06L, Red Cell Distribution Width 15.0H, Sodium Level 134L, Total Bilirubin 0.8, Total Protein 5.7L, White Blood Count 11.0 11/07/16 06:40: Glucometer 120H Microbiology 11/06/16 Blood Culture - Preliminary, Resulted No growth 11/04/16 Influenza Types A,B Antigen (EMILIA) - Final, Complete 11/06/16 Urine Culture - Preliminary, Resulted Enterococcus Faecalis A/P: Assessment/Dx: acute on chronic systolic heart failure, Acute on chronic renal failure, Cardiorenal syndrome, Hypotension, Atrial fibrillation Plan: I am told that the patient's status is being changed to hospice care and comfort measures only. Multiorgan failure included in assessment list. Allison NAAVRRO MD Nov 07, 2016 1:44 pm Alanine Aminotransferase (ALT/SGPT) 23, Albumin 3.4, Alkaline Phosphatase 68, Anion Gap 15H, Aspartate Amino Transf (AST/SGOT) 23, BUN/Creatinine Ratio 28, Basophils # (Auto) 0.0, Basophils (%) (Auto) 0, Blood Urea Nitrogen 94H, Calcium Level 8.8, Carbon Dioxide Level 29, Chloride Level 90L, Creatinine 3.39H , Eosinophils # (Auto) 0.0, Eosinophils (%) (Auto) 0, Estimat Glomerular Filtration Rate 13, Glucose Level 134H, Hematocrit 28L, Hemoglobin 9.0L, Lymphocytes # (Auto) 1.1, Lymphocytes (%) (Auto) 10L, Magnesium Level 2.6H, Mean Corpuscular Hemoglobin 29, Mean Corpuscular Hemoglobin Concent 32, Mean Corpuscular Volume 91, Mean Platelet Volume 10.7H, Monocytes # (Auto) 0.9, Monocytes (%) (Auto) 8, Neutrophils # (Auto) 9.0H, Neutrophils (%) (Auto) 82H, Platelet Count 198, Potassium Level 4.0, Red Blood Count 3.06L, Red Cell Distribution Width 15.0H, Sodium Level 134L, Total Bilirubin 0.8, Total Protein 5.7L, White Blood Count 11.0 11/07/16 06:40: Glucometer 120H Microbiology 11/04/16 Influenza Types A,B Antigen (EMILIA) - Final, Complete 11/06/16 Urine Culture - Preliminary, Resulted Enterococcus Faecalis A/P: Assessment/Dx: acute on chronic systolic heart failure, Acute on chronic renal failure, ? Cardiorenal syndrome, Hypotension, Atrial fibrillation Plan: acute on chronic systolic heart failure: patient improved slightly with IV Lasix. I think she still needs IV Lasix but agree to hold it because of worsening renal function. However, I believe worsening renal function is secondary to cardiorenal syndrome rather than intravascular dehydration. Continue to follow renal function post milrinone.. Acute on chronic renal failure, ? Cardiorenal syndrome Hypotension: my concern is that she may be impending cardiogenic shock. Her blood pressure is holding systolic pressure in the 90s, she is tachycardic, her creatinine is worsening. Start low-dose milrinone infusion. Atrial fibrillation: beta blockers. Eliquis 2.5 mg twice a day. Poor prognosis. I discussed at length the prognosis yesterday with the patient and family. Thank you for your consultation. Please call me if you have any questions. Marshal Navarro MD, FACP, FACC, FSCAI, FHRS, CCDS Interventional Cardiology Cardiac Electrophysiology Vascular Medicine and Endovascular Interventions Allison NAVARRO MD Nov 07, 2016 1:44 pm
--- NOTE | 2016-11-08 07:45 | Progress Note (SOAP) ---
Subjective Subjective/Events-last exam PT SLEEPY, SHE STATES THAT SHE IS USING THE OXYGEN FOR COMFORT Review of Systems General: Fatigue Neurological: : Confusion: Weakness INCREASED WORK OF BREATHING NOTED Objective Exam Vital Signs Date Time Temp Pulse Resp B/P Pulse Ox O2 Delivery O2 Flow Rate FiO2 11/07/16 23:00 100 Nasal Cannula 2.00 11/07/16 22:05 Nasal Cannula 1.00 11/07/16 20:05 Nasal Cannula 2.00 11/07/16 15:15 Nasal Cannula 2.00 11/07/16 12:00 Nasal Cannula 3.00 11/07/16 11:40 93.6 100 Nasal Cannula 3.00 11/07/16 10:30 Nasal Cannula 3.00 11/07/16 09:59 101 17 96 1.00 11/07/16 09:00 96.0 11/07/16 09:00 93 12 115/76 97 NIV/Bilevel 30.00 11/07/16 08:49 106 13 97 2.00 11/07/16 08:00 111 13 111/75 97 NIV/Bilevel 30.00 I & O 11/08/16 07:00 Intake Total 285 ml Output Total 650 ml Balance -365 ml Capillary Refill : Greater Than 3 Seconds General Appearance: WD/WN Mild Distress (DUE TO DYSPNEA) Neck: Supple Respiratory: Chest Non Tender Decreased Breath Sounds Cardiovascular: Tachycardia Extremity: Pedal Edema Neurologic/Psychiatric: Disoriented x3 Skin: Warm/Dry Results Lab Microbiology 11/06/16 Blood Culture - Preliminary, Resulted No growth 11/04/16 Influenza Types A,B Antigen (EMILIA) - Final, Complete 11/06/16 Urine Culture - Final, Complete Enterococcus Faecalis Assessment/Plan Assessment/Plan Assess & Plan/Chief Complaint CARDIOGENIC RENAL FAILURE ACUTE ON CHRONIC SYSTOLIC CONGESTIVE HEART FAILURE HYPERTENSION COPD PT AND FAMILY DESIRE PT TO BE MADE COMFORT CARE. I HAVE DISCUSSED THIS WITH THE PATIENT IN DETAIL AND HER DPOA - ARASH IN DETAIL. PT IS ON OXYGEN VIA NASAL CANNULA - THIS IS OFFERING HER COMFORT AND WE WILL KEEP THIS FOR THE PT AT THIS TIME. PATIENT WILL NEED TO CONTINUE WITH PRN MORPHINE AND PRN ATIVAN FOR COMFORT MEASURES. STOP OTHER MEDICATIONS NOT RELATED TO HER COMFORT. Diagnosis/Problems: Clinical Quality Measures DVT/VTE Risk/Contraindication: Contraindications-Pharm: Other *list below* ELKIN THORPE MD Nov 08, 2016 07:45
--- NOTE | 2016-11-08 09:04 | Occ Therapy Progress Note ---
Therapy Progress Note OT cancelled per Dr. Morales. Pt on Comfort Care. FRANCES CURRAN OT Nov 08, 2016 09:04
[2016-11-08] MEDS: morphine INJ 4 MG/ML 1 ML (VIAL/SYRINGE) IV PRN (20:37)
[2016-11-09] MEDS: LORazepam INJ 2 MG/ML (ATIVAN) VIAL IVP PRN ×2 (02:41→06:23)
[2016-11-09] MEDS: morphine INJ 4 MG/ML 1 ML (VIAL/SYRINGE) IV PRN ×5 (02:41→09:17)
--- NOTE | 2016-11-09 07:54 | Progress Note (SOAP) ---
Subjective Subjective/Events-last exam see discharge note, pt shortly after my visit to her room this morning Review of Systems INCREASED WORK OF BREATHING NOTED Objective Exam Vital Signs Date Time Temp Pulse Resp B/P Pulse Ox O2 Delivery O2 Flow Rate FiO2 11/09/16 07:42 100 Nasal Cannula 2.00 11/08/16 20:00 100 Nasal Cannula 2.00 11/08/16 08:00 100 Nasal Cannula 2.00 I & O 11/09/16 07:00 Intake Total 50 ml Output Total 500 ml Balance -450 ml Capillary Refill : Greater Than 3 Seconds General Appearance: Other (see discharge summary - pt was having significant work of breathing, appeared to be in discomfort and was obtunded) Respiratory: Respiratory Distress Rhonci Wheezing Cardiovascular: Tachycardia Results Lab Microbiology 11/06/16 Blood Culture - Preliminary, Resulted No growth 11/04/16 Influenza Types A,B Antigen (EMILIA) - Final, Complete 11/06/16 Urine Culture - Final, Complete Enterococcus Faecalis Assessment/Plan Assessment/Plan Assess & Plan/Chief Complaint CARDIOGENIC RENAL FAILURE ACUTE ON CHRONIC SYSTOLIC CONGESTIVE HEART FAILURE HYPERTENSION COPD PT AND FAMILY DESIRE PT TO BE MADE COMFORT CARE. I HAVE DISCUSSED THIS WITH THE PATIENT IN DETAIL AND HER DPOA - ARASH IN DETAIL. PT IS ON OXYGEN VIA NASAL CANNULA - THIS IS OFFERING HER COMFORT AND WE WILL KEEP THIS FOR THE PT AT THIS TIME. PATIENT WILL NEED TO CONTINUE WITH PRN MORPHINE AND PRN ATIVAN FOR COMFORT MEASURES. STOP OTHER MEDICATIONS NOT RELATED TO HER COMFORT. pt this morning after my visit - see discharge summary Diagnosis/Problems: Clinical Quality Measures DVT/VTE Risk/Contraindication: Contraindications-Pharm: Other *list below* ELKIN THORPE MD Nov 09, 2016 07:54
--- NOTE | 2016-11-09 10:21 | Discharge Summary ---
Diagnosis/Chief Complaint Date of Admission Nov 04, 2016 at 01:40 Date of Discharge Discharge Date: Nov 09, 2016 Admission Diagnosis Admission Diagnosis acute on chronic respiratory failure congestive heart failure. Renal insufficiency. Diabetes Discharge Diagnosis CARDIOGENIC RENAL FAILURE ACUTE ON CHRONIC SYSTOLIC CONGESTIVE HEART FAILURE HYPERTENSION COPD ACUTE RENAL FAILURE Reason Hospital Visit Pt is an 81yo with hx of CHF with admission in september of this year. Pt resides at [facility] presented to the hospital with complaint of shortness of breath, and concern from nursing staff for her severe dyspnea. CXR shows pulmonary edema BNP 1470. Discharge Summary Discharge Physical Examination Allergies: Coded Allergies: No Known Drug Allergies (Unverified , 09/28/16) Vitals & I&Os Vital Signs Date Time Temp Pulse Resp B/P Pulse Ox O2 Delivery O2 Flow Rate FiO2 11/09/16 08:00 100 Nasal Cannula 2.00 11/07/16 11:40 93.6 11/07/16 09:59 101 17 11/07/16 09:00 115/76 General Appearance: Other () HEENT: Other Psych/Mental Status: Other () Hospital Course CARDIOGENIC RENAL FAILURE ACUTE ON CHRONIC SYSTOLIC CONGESTIVE HEART FAILURE HYPERTENSION COPD ACUTE RENAL FAILURE PT AND FAMILY DESIRE PT TO BE MADE COMFORT CARE. I HAVE DISCUSSED THIS WITH THE PATIENT IN DETAIL AND HER DPOA - ARAHS IN DETAIL. pt this morning after my visit - Discharge Condition at discharge PT Instructions to patient/family PT Discharge Medications PT Clinical Quality Measures DVT/VTE Risk/Contraindication: Contraindications-Pharm: Other *list below* ELKIN THORPE MD Nov 09, 2016 10:21
== END 2016-11-09 12:48 | disposition expired | DRG 189 ==
LOC: EDUNIT# 01:16 → ER 01:17 → ICU 01:40 → 4TH 23:07 → ICU 11-05 00:04 → 4TH 11-07 15:20
PROVIDERS: ADMIT Family Medicine; ATTEND Family Medicine
DX: J96.21 Acute and chronic respiratory failure with hypoxia (principal); I50.23 Acute on chronic systolic (congestive) heart failure; I42.9 Cardiomyopathy, unspecified; N17.9 Acute kidney failure, unspecified; I69.354 Hemiplegia and hemiparesis following cerebral infarction affecting left non-dominant side; I13.0 Hypertensive heart and chronic kidney disease with heart failure and stage 1 through stage 4 chronic kidney disease, or unspecified chronic kidney disease; I69.398 Other sequelae of cerebral infarction; Z66 Do not resuscitate; Z51.5 Encounter for palliative care; R29.6 Repeated falls; R26.9 Unspecified abnormalities of gait and mobility; N18.9 Chronic kidney disease, unspecified; R68.0 Hypothermia, not associated with low environmental temperature; I25.10 Atherosclerotic heart disease of native coronary artery without angina pectoris; I25.2 Old myocardial infarction; Z95.1 Presence of aortocoronary bypass graft; Z99.81 Dependence on supplemental oxygen; I95.9 Hypotension, unspecified; I48.91 Unspecified atrial fibrillation; E11.9 Type 2 diabetes mellitus without complications
CPT/HCPCS: 36415; 51702; 71010; 80048; 80053; 81000; 82550; 82553; 82805; 82962; 83605; 83735; 83880; 84100; 84484; 85007; 85025; 85027; 85610; 85730; 87040; 87077; 87088; 87186; 87804; 93005; 93041; 94640; 94660; 96365; 96375